=== PATIENT | female | born 1945 | race Caucasian/White ===

== ENCOUNTER → 2016-09-28 | Outpatient (CLI) | payer OTHER, MEDICARE ==
[~2016-09-28] MED LIST: AMOX875T PO; ASCA500 PO; ASPI81TA28 PO; ATOR10TA88 PO; CALC500C70 PO; CALC600T9 PO; CHOL100010 PO; CHOL20005 PO; CYAN10004 PO; CYAN10005 PO; GEMF600T3 PO; LABE200T24 PO; LACT1TAB4 PO; LEVO112T4 PO; LEVO75TA5 PO; LEVO88TA3 PO; LISI20TA3 PO; LISI40TA PO; LXP/20 PO; METO25TA3 PO; MIRT1TAB27 PO; MISCCAP80 PO; NRN/300 PO; OMEP20CA9 PO; TRC48 PO; VNCS250 PO
--- NOTE | 2016-09-28 15:30 | MAMMOGRAPHY REPORT ---
BILATERAL DIGITAL SCREENING MAMMOGRAM WITH CAD: 09/28/2016 CLINICAL HISTORY: Routine screening examination. TECHNIQUE: Bilateral CC, MLO and repeat left MLO view for motion were obtained. Current study was a lso evaluated with a Computer Aided Detection (CAD) system. COMPARISON: Comparison is made to exams dated: 09/28/2015 mammogram, 05/28/2012 mammogram, 05/27/2011 [facility], and 10/03/2007. BREAST COMPOSITION: There are scattered areas of fibroglandular density in both breasts. FINDINGS: There are stable asymmetries in the superior aspect of the breasts, and benign coarse calc ifications in the right breast. No suspicious mass, architectural distortion or cluster of microcal cifications is seen. IMPRESSION: ACR BI-RADS CATEGORY 1: NEGATIVE There is no mammographic evidence of malignancy. A 1 year screening mammogram is recommended. The p atient will receive written notification of the results. Approximately 10% of breast cancers are not detected with mammography. A negative mammographic repor t should not delay biopsy if a clinically suggestive mass is present. Latoya Mcallister M.D. ay/:09/28/2016 14:59:10 Mental Health Consultant: Rosalie MCKENNA(Sabas)(M), [facility] letter sent: Normal 1/2 BI-RADS Code: ACR BI-RADS Category 1: Negative
== END | disposition home or self-care (01) ==
LOC: C.MAMM 13:53
PROVIDERS: ATTEND Internal Medicine
DX: Z12.31 Encounter for screening mammogram for malignant neoplasm of breast (principal)

== ENCOUNTER → 2016-10-17 | Outpatient (CLI) | payer OTHER, MEDICARE ==
[2016-10-17 13:06] LABS: BASO % 0.3 %; BASO ABS # 0.03 K/uL (0-0.2); EOS % 3.1 %; IG% 0.4 %; LYMPH % 19.4 %; LYMPH ABS # 1.92 K/uL (1.2-3.4); MEAN CELL VOLUME 111.1 fL (80-100); MEAN CORPUSCULAR HEMOGLOBIN 34.8 pg (25-34); MEAN CORPUSCULAR HGB CONC 31.3 g/dl (32-36); MONO % 6.4 %; NEUT % 70.4 %; PLATELET COUNT 321 K/uL (130-400); RED BLOOD COUNT 3.42 M/uL (4.2-5.4); WHITE BLOOD COUNT 9.92 K/uL (4.8-10.8)
[2016-10-17 13:38] LABS: ALT/SGPT 37 U/L (12-78); AST/SGOT 19 U/L (15-37); BLOOD UREA NITROGEN 31 mg/dl (7-18); BUN/CREATININE RATIO 20.9 (10-20); CALCIUM 8.6 mg/dl (8.5-10.1); CARBON DIOXIDE 22 mmol/L (21-32); CHLORIDE 110 mmol/L (98-107); GLUCOSE 74 mg/dl (70-99); POTASSIUM 4.7 mmol/L (3.5-5.1); SODIUM 142 mmol/L (136-145)
[2016-10-17 13:42] LABS: COMPLETE YES
[2016-10-17 13:50] LABS: ALB/GLOB RATIO 1.2 (0.9-2); ALKALINE PHOSPHATASE 105 U/L (45-117); CHOLESTEROL 249 mg/dl (0-200); CHOLESTEROL/HDL RATIO 5.1; HDL CHOLESTEROL 49 mg/dl; TRIGLYCERIDES 417 mg/dl (0-150)
== END | disposition home or self-care (01) ==
LOC: C.LAB1850 11:30
PROVIDERS: ATTEND Internal Medicine
DX: E78.5 Hyperlipidemia, unspecified (principal); E03.9 Hypothyroidism, unspecified; E55.9 Vitamin D deficiency, unspecified; E53.8 Deficiency of other specified B group vitamins; D75.89 Other specified diseases of blood and blood-forming organs

== ENCOUNTER → 2016-11-23 | Outpatient (CLI) | payer OTHER, MEDICARE ==
[~2016-11-23] MED LIST changes: +ATOR10TA82 PO; -ATOR10TA88 PO
[2016-11-23 15:39] LABS: BASO % 0.6 %; BASO ABS # 0.05 K/uL (0-0.2); EOS % 4.1 %; HEMATOCRIT 38.9 % (37-47); IG% 0.2 %; LYMPH % 28.6 %; LYMPH ABS # 2.35 K/uL (1.2-3.4); MEAN CELL VOLUME 112.1 fL (80-100); MEAN CORPUSCULAR HEMOGLOBIN 36.3 pg (25-34); MEAN CORPUSCULAR HGB CONC 32.4 g/dl (32-36); MEAN PLATELET VOLUME 9.1 fL (7.4-10.4); MONO % 5.3 %; NEUT % 61.2 %; PLATELET COUNT 362 K/uL (130-400); RED BLOOD COUNT 3.47 M/uL (4.2-5.4); WHITE BLOOD COUNT 8.23 K/uL (4.8-10.8)
[2016-11-23 16:08] LABS: BLOOD UREA NITROGEN 32 mg/dl (7-18); BUN/CREATININE RATIO 20.2 (10-20); CARBON DIOXIDE 25 mmol/L (21-32); CHLORIDE 109 mmol/L (98-107); GLUCOSE 91 mg/dl (70-99); POTASSIUM 4.7 mmol/L (3.5-5.1); SODIUM 141 mmol/L (136-145)
[2016-11-23 16:20] LABS: TOTAL IRON BINDING CAPACITY 418 mcg/dl (250-450)
[2016-11-23 16:22] LABS: ANISOCYTOSIS PRESENT; COMPLETE YES
== END | disposition home or self-care (01) ==
LOC: C.LAB1850 14:36
PROVIDERS: ATTEND Internal Medicine
DX: E03.9 Hypothyroidism, unspecified (principal); D50.9 Iron deficiency anemia, unspecified

== ENCOUNTER 2016-12-25 15:34 | Emergency (ER) | payer OTHER, MEDICARE ==
[~2016-12-25] VITALS: Ht 170.2 cm; Wt 73.0 kg
[~2016-12-25 15:34] MED LIST changes: -AMOX875T PO; -ASCA500 PO; -CALC500C70 PO; -CHOL100010 PO; -CYAN10005 PO; -LEVO75TA5 PO; -LEVO88TA3 PO; -LISI20TA3 PO; -MISCCAP80 PO; -TRC48 PO
[2016-12-25 15:52] VITALS: TEMP 36.6; Ht 170.2 cm; Wt 73.0 kg
[2016-12-25] MEDS ORDERED: LEVO88TA3 PO (15:54)
[2016-12-25] MEDS ORDERED: TRC48 PO (15:54)
[2016-12-25] MEDS ORDERED: SODIUM CHLORIDE 0.9% 1000ML 1,000 ML IV STA (15:55)
[2016-12-25 16:38] LABS: HEMATOCRIT 38.7 % (37-47); MEAN CELL VOLUME 113.2 fL (80-100); MEAN CORPUSCULAR HEMOGLOBIN 36.3 pg (25-34); MEAN PLATELET VOLUME 8.8 fL (7.4-10.4); PLATELET COUNT 515 K/uL (130-400); RED BLOOD COUNT 3.42 M/uL (4.2-5.4); WHITE BLOOD COUNT 10.36 K/uL (4.8-10.8)
[2016-12-25 16:54] LABS: BUN/CREATININE RATIO 28.2 (10-20); CREATININE 1.9 mg/dl (0.60-1.20); POTASSIUM 5.1 mmol/L (3.5-5.1)
[2016-12-25 17:02] LABS: ANISOCYTOSIS PRESENT; BASO % 0.2 %; BASO ABS # 0.02 K/uL (0-0.2); COMPLETE YES; EOS % 1.4 %; IG% 0.5 %; LYMPH % 11.7 %; LYMPH ABS # 1.21 K/uL (1.2-3.4); NEUT % 81.2 %
[2016-12-25] MEDS ORDERED: ACETAMINOPHEN 500 MG TAB PO STA (17:13)
--- NOTE | 2016-12-25 17:20 | DIAGNOSTIC IMAGING REPORT ---
HEAD CT NONCONTRAST CT DOSE: 537.48 mGy.cm HISTORY: EVALUATE ALTERED MENTAL STATUS/WEAKNESS TECHNIQUE: Multiaxial CT images of the head were performed without the use of intravenous contrast. Automated exposure control was utilized for this study. Comparison: Head CT 05/11/2015. Findings: There is again noted a right cochlear implant. This results in metallic artifact. Fluid levels with near complete opacification of the left ethmoid air cells, left frontal sinus, and left maxillary sinus. The left mastoid air cells are clear. The calvarium and skull base are intact. The ventricles and sulci are within normal limits. There is no mass, hematoma, midline shift, or acute infarct. Impression: 1. Acute left paranasal sinusitis. 2. Metallic artifact from the right cochlear implant is again noted. This results in suboptimal evaluation. However, no definite acute intracranial abnormality. Electronically signed by: Armando Arcos M.D. 12/25/2016 5:19 PM Dictated Date/Time: 12/25/2016 5:15 PM
[2016-12-25 17:56] LABS: MANUAL MICROSCOPIC REQUIRED? NO; REVIEW REQ? NO; URINE APPEARANCE CLEAR (CLEAR); URINE BILIRUBIN NEG (NEG); URINE COLOR YELLOW; URINE EPITHELIAL CELL AUTO 20-30 /lpf (0-5); URINE NITRITE NEG (NEG); URINE PH 5.5 (4.5-7.5); URINE SPECIFIC GRAVITY 1.018 (1.000-1.030); UROBILINOGEN NEG (NEG); ZZUR CULT IF INDIC CLEAN CATCH NO
[2016-12-25] MEDS ORDERED: AMOX875T PO (18:19)
--- NOTE | 2016-12-25 18:20 | EMERGENCY ROOM VISIT NOTE ---
History Report prepared by Tamar: Sherron Lovelace Under the Supervision of: Dr. Sonny Mercer D.O. First contact with patient: 15:51 Chief Complaint: FALL Stated Complaint: FALL, WEAKNESS History of Present Illness The patient is a 71 year old female who presents to the Emergency Room with complaints of an episode of a fall occurring this morning. She reports that she uses a walker and had gotten up to use the restroom. She states that she slid off the toilet this morning onto the floor. The patient reports that she couldn' t get up so rolled out the living room. She states that she laid on the floor for about five hours till someone found her. She reports that she does have a headache. The patient notes that she has neuropathy and notes that she hasn't eaten anything today. Source of History: patient Onset: this morning Position: other (global) Quality: other (global) Timing: other (episode) Associated Symptoms: + headache Review of Systems See HPI for pertinent positives & negatives. A total of 10 systems reviewed and were otherwise negative. Past Medical & Surgical Medical Problems: (1) Altered mental status (2) Arthritis (3) Atrial flutter (4) Bimalleolar fracture of right ankle (5) Clostridium difficile colitis (6) Confusion (7) Fracture dislocation of right ankle joint (8) Hypertension (9) Metabolic acidosis (10) Sepsis associated hypotension (11) Sinusitis (12) Trimalleolar fracture of ankle, closed Family History Heart disease Hypertension Social History Smoking Status: Never Smoker Alcohol Use: occasionally Drug Use: none Marital Status: Housing Status: lives alone Occupation Status: retired Current/Historical Medications Scheduled Amoxicillin & Pot Clavulanate (Augmentin 875-125 mg), 1 TAB PO BID Aspirin (Aspirin Ec), 81 MG PO DAILY Atorvastatin (Lipitor), 10 MG PO HS Escitalopram Oxalate (Escitalopram Oxalate), 20 MG PO DAILY Fenofibrate (Fenofibrate), 48 MG PO DAILY Gabapentin (Neurontin), 300 MG PO TID Labetalol Hcl (Labetalol Hcl), 200 MG PO BID Levothyroxine Sodium (Levothyroxine Sodium), 1 TAB PO DAILY Lisinopril (Zestril), 40 MG PO DAILY Mirtazapine (Mirtazapine), 7.5 MG PO HS Omeprazole (Prilosec), 20 MG PO DAILY Allergies Coded Allergies: Sulfa Antibiotics (Verified Allergy, Severe, STOMACH SWELLS; STOMACH BLOCKAGE? PER PATIENT, 09/02/15) Physical Exam Vital Signs Date Time Temp Pulse Resp B/P (MAP) Pulse Ox O2 Delivery O2 Flow Rate FiO2 12/25/16 17:12 109 18 114/79 99 Room Air 12/25/16 15:52 36.6 113 20 108/67 97 Room Air Physical Exam CONSTITUTIONAL/VITAL SIGNS: Reviewed / noted above. GENERAL: Non-toxic in appearance. INTEGUMENTARY: Warm, dry, and [place]. HEAD: Normocephalic. EYES: without scleral icterus or trauma. ENT/OROPHARYNX: clear and moist. LYMPHADENOPATHY/NECK: Is supple without lymphadenopathy or meningismus. RESPIRATORY: Lungs clear and equal. CARDIOVASCULAR: Regular rate and rhythm. GI/ABDOMEN: Soft and nontender. No organomegaly or pulsatile mass. No rebound or guarding. Normal bowel sounds. EXTREMITIES: Warm and well perfused. BACK: No CVA tenderness. NEUROLOGICAL: Intact without focal deficits. PSYCHIATRIC: normal affect. MUSCULOSKELETAL: Normally developed with good muscle tone. Medical Decision & Procedures ER Provider Diagnostic Interpretation: Radiology results as stated below per my review and radiologist interpretation: HEAD CT NONCONTRAST CT DOSE: 537.48 mGy.cm HISTORY: EVALUATE ALTERED MENTAL STATUS/WEAKNESS TECHNIQUE: Multiaxial CT images of the head were performed without the use of intravenous contrast. Automated exposure control was utilized for this study. Comparison: Head CT 05/11/2015. Findings: There is again noted a right cochlear implant. This results in metallic artifact. Fluid levels with near complete opacification of the left ethmoid air cells, left frontal sinus, and left maxillary sinus. The left mastoid air cells are clear. The calvarium and skull base are intact. The ventricles and sulci are within normal limits. There is no mass, hematoma, midline shift, or acute infarct. Impression: 1. Acute left paranasal sinusitis. 2. Metallic artifact from the right cochlear implant is again noted. This results in suboptimal evaluation. However, no definite acute intracranial abnormality. Electronically signed by: Armando Arcos M.D. 12/25/2016 5:19 PM Dictated Date/Time: 12/25/2016 5:15 PM Laboratory Results 12/25/16 16:25 Red Blood Count 3.42, Mean Corpuscular Volume 113.2, Mean Corpuscular Hemoglobin 36.3, Mean Corpuscular Hemoglobin Concent 32.0, Mean Platelet Volume 8.8, Neutrophils (%) (Auto) 81.2, Lymphocytes (%) (Auto) 11.7, Monocytes (%) ( Auto) 5.0, Eosinophils (%) (Auto) 1.4, Basophils (%) (Auto) 0.2, Neutrophils # ( Auto) 8.42, Lymphocytes # (Auto) 1.21, Monocytes # (Auto) 0.52, Eosinophils # ( Auto) 0.14, Basophils # (Auto) 0.02 12/25/16 16:25 Test 12/25/16 16:25 12/25/16 17:30 White Blood Count 10.36 K/uL (4.8-10.8) Red Blood Count 3.42 M/uL (4.2-5.4) Hemoglobin 12.4 g/dL (12.0-16.0) Hematocrit 38.7 % (37-47) Mean Corpuscular Volume 113.2 fL (80-100) Mean Corpuscular Hemoglobin 36.3 pg (25-34) Mean Corpuscular Hemoglobin Concent 32.0 g/dl (32-36) Platelet Count 515 K/uL (130-400) Mean Platelet Volume 8.8 fL (7.4-10.4) Neutrophils (%) (Auto) 81.2 % Lymphocytes (%) (Auto) 11.7 % Monocytes (%) (Auto) 5.0 % Eosinophils (%) (Auto) 1.4 % Basophils (%) (Auto) 0.2 % Neutrophils # (Auto) 8.42 K/uL (1.4-6.5) Lymphocytes # (Auto) 1.21 K/uL (1.2-3.4) Monocytes # (Auto) 0.52 K/uL (0.11-0.59) Eosinophils # (Auto) 0.14 K/uL (0-0.5) Basophils # (Auto) 0.02 K/uL (0-0.2) RDW Standard Deviation 59.2 fL (36.4-46.3) RDW Coefficient of Variation 14.4 % (11.5-14.5) Immature Granulocyte % (Auto) 0.5 % Immature Granulocyte # (Auto) 0.05 K/uL (0.00-0.02) Nucleated RBC Absolute Count (auto) 0.02 K/uL (0-0) Nucleated Red Blood Cells % 0.2 % Anisocytosis PRESENT Macrocytosis PRESENT Anion Gap 15.0 mmol/L (3-11) Est Creatinine Clear Calc Drug Dose 25.7 ml/min Estimated GFR () 29.8 Estimated GFR (Non- 25.7 BUN/Creatinine Ratio 28.2 (10-20) Calcium Level 9.0 mg/dl (8.5-10.1) Urine Color YELLOW Urine Appearance CLEAR (CLEAR) Urine pH 5.5 (4.5-7.5) Urine Specific Bowen 1.018 (1.000-1.030) Urine Protein NEG (NEG) Urine Glucose (UA) NEG (NEG) Urine Ketones NEG (NEG) Urine Occult Blood NEG (NEG) Urine Nitrite NEG (NEG) Urine Bilirubin NEG (NEG) Urine Urobilinogen NEG (NEG) Urine Leukocyte Esterase NEG (NEG) Urine WBC (Auto) 1-5 /hpf (0-5) Urine RBC (Auto) 0-4 /hpf (0-4) Urine Hyaline Casts (Auto) 1-5 /lpf (0-5) Urine Epithelial Cells (Auto) 20-30 /lpf (0-5) Urine Bacteria (Auto) NEG (NEG) Laboratory results as stated above per my review. Medications Administered Medications (Trade) Dose Ordered Sig/Hillary Route Start Time Stop Time Status Last Admin Dose Admin Sodium Chloride 1,000 ml @ 999 mls/hr Q1H1M STAT IV 12/25/16 15:55 12/25/16 16:55 DC 12/25/16 16:40 999 MLS/HR Acetaminophen (Tylenol Tab) 1,000 mg NOW STAT PO 12/25/16 17:13 12/25/16 17:14 DC 12/25/16 17:19 1,000 MG ED Course 1551: Previous medical records were reviewed. The patient was evaluated in room B11B. A complete history and physical examination was performed. 1555: Ordered NSS 1000 ml @ 999 mls/hr IV. 1713: Ordered Tylenol Tab 1000 mg PO. 1810: On reevaluation, the patient is resting comfortably. I discussed the results and findings with the patient. She verbalized agreement of the treatment plan. The patient was discharged home. Medical Decision Medication Reconciliation: I attest that I have personally reviewed the patient' s current medication list. Blood pressure Screening: Patient was found to have normal blood pressure on screening and does not require follow-up. Differential diagnosis: Etiologies such as fracture, dislocation, intra-abdominal, pneumothorax, intrathoracic , intracranial, neurologic, as well as other traumatic pathologies were entertained. Differential diagnosis: Etiologies such as metabolic, infection, hypo/hyperglycemia, electrolyte abnormalities, cardiac sources, intracerebral event, toxicologic, neurologic, as well as others were entertained. This is a 71-year-old female who presents to the ED after a fall. The patient states that she fell this morning and could not get up. She was on the ground for about 45 hours. She states that she crawled around but could not get herself up. She slid off the toilet. She was brought here by EMS. She complains of a headache. She denies striking her head. She is concerned about a possible sinus infection. Her vital signs are normal. Her physical exam reveals no ischemic abnormalities other than some dried mucous membranes. CT scan of the brain reveals a left paranasal sinusitis. CBC is normal. The BUN is 54 and creatinine is 1.9 (1.6 baseline). The patient tolerated by mouth fluids as well as a liter of normal saline IV. Urine did not show infection or ketones. The patient was given Tylenol by mouth for her headache. She was placed on Augmentin for sinus infection. She was encouraged to drink plenty of fluids. She was told the results and felt to be stable for discharge and outpatient follow-up. She does use a walker and was told to use this if she is feeling unsteady. Impression Primary Impression: Fall Additional Impressions: Sinusitis Dehydration Scribe Attestation The scribe's documentation has been prepared under my direction and personally reviewed by me in its entirety. I confirm that the note above accurately reflects all work, treatment, procedures, and medical decision making performed by me. Departure Information Dispostion Home / Self-Care Prescriptions Amoxicillin & Pot Clavulanate (Augmentin 875-125 mg) 1 Tab Tab 1 TAB PO BID, #14 TAB Prov: Sonny Mercer D.O. 12/25/16 Referrals ADAM Mims., MD (PCP) Patient Instructions ED Sinusitis Abx Tx, [facility] Additional Instructions Augmentin as prescribed. Take Tylenol as needed for headache. Drink plenty of fluids. Follow-up with your doctor for further care and evaluation in 1-5 days. Return to the emergency department for worsening or new symptoms or any concerns. You have been examined and treated today on an emergency basis only. This is not a substitute for, or an effort to provide, complete comprehensive medical care. It is impossible to recognize and treat all injuries or illnesses in a single emergency department visit. It is therefore important that you follow up closely with your doctor. Call as soon as possible for an appointment. Problem Qualifiers
[2016-12-25] MEDS ORDERED: AMOXICIL/CLAVU 875MG HOME PACK PO ONE (19:30)
[2016-12-25 19:47] VITALS: BP 143/96; PULSE 110; O2SAT 96
[2016-12-25] MEDS ORDERED: AMOXICILLIN/CLAVULANATE TAB 875 MG TAB PO ONE (21:00)
[2017-04-13] MEDS ORDERED: CYAN10005 PO (10:19)
[2017-04-13] MEDS ORDERED: GEMF600T3 PO (10:19)
[2017-04-13] MEDS ORDERED: LISI20TA3 PO (10:19)
[2017-04-13] MEDS ORDERED: LEVO75TA5 PO (10:19)
[2017-04-13] MEDS ORDERED: MISCCAP80 PO (10:19)
[2017-04-13] MEDS ORDERED: ASCA500 PO (10:19)
[2017-04-13] MEDS ORDERED: CHOL100010 PO (10:19)
[2017-04-13] MEDS ORDERED: CALC500C70 PO (10:19)
== END 2016-12-25 19:49 | disposition home or self-care (01) ==
LOC: EDBD 15:34 → C.EDB 15:35
DX: J32.9 Chronic sinusitis, unspecified (principal); W19.XXXA Unspecified fall, initial encounter; E86.0 Dehydration; R41.82 Altered mental status, unspecified; M19.90 Unspecified osteoarthritis, unspecified site; I48.92 Unspecified atrial flutter; A04.7 Enterocolitis due to Clostridium difficile; I10 Essential (primary) hypertension; E87.2 Acidosis; Z82.49 Family history of ischemic heart disease and other diseases of the circulatory system; Z79.82 Long term (current) use of aspirin

== ENCOUNTER → 2017-01-30 | Outpatient (CLI) | payer OTHER, MEDICARE ==
[~2017-01-30] MED LIST changes: +ASCA500 PO; -ATOR10TA82 PO; +ATOR10TA88 PO; +CALC500C70 PO; -CALC600T9 PO; +CHOL100010 PO; -CHOL20005 PO; -CYAN10004 PO; +CYAN10005 PO; -LACT1TAB4 PO; -LEVO112T4 PO; +LEVO75TA5 PO; +LEVO88TA3 PO; +LISI20TA3 PO; -METO25TA3 PO; +MISCCAP80 PO; +TRC48 PO; -VNCS250 PO
[2017-01-30 10:46] LABS: BASO % 0.8 %; BASO ABS # 0.07 K/uL (0-0.2); EOS % 5.8 %; HEMATOCRIT 33.2 % (37-47); IG% 0.2 %; LYMPH % 19.3 %; LYMPH ABS # 1.59 K/uL (1.2-3.4); MEAN CELL VOLUME 115.3 fL (80-100); MEAN CORPUSCULAR HEMOGLOBIN 35.8 pg (25-34); MEAN PLATELET VOLUME 8.7 fL (7.4-10.4); MONO % 6.9 %; PLATELET COUNT 380 K/uL (130-400); RED BLOOD COUNT 2.88 M/uL (4.2-5.4); WHITE BLOOD COUNT 8.24 K/uL (4.8-10.8)
[2017-01-30 11:19] LABS: COMPLETE YES
[2017-01-30 11:24] LABS: ALT/SGPT 44 U/L (12-78); AST/SGOT 28 U/L (15-37); BLOOD UREA NITROGEN 23 mg/dl (7-18); BUN/CREATININE RATIO 23.7 (10-20); CALCIUM 9.1 mg/dl (8.5-10.1); CARBON DIOXIDE 24 mmol/L (21-32); CHLORIDE 112 mmol/L (98-107); CREATININE 0.98 mg/dl (0.60-1.20); GLUCOSE 93 mg/dl (70-99); SODIUM 145 mmol/L (136-145)
[2017-01-30 11:27] LABS: ALB/GLOB RATIO 0.8 (0.9-2); ALKALINE PHOSPHATASE 168 U/L (45-117)
== END | disposition home or self-care (01) ==
LOC: C.LAB1850 09:52
PROVIDERS: ATTEND Internal Medicine
DX: D47.3 Essential (hemorrhagic) thrombocythemia (principal); E86.0 Dehydration

== ENCOUNTER → 2017-02-13 | Outpatient (CLI) | payer OTHER, MEDICARE | END | disposition home or self-care (01) | LOC: C.LAB1850 12:06 | PROVIDERS: ATTEND Internal Medicine | DX: D64.9 Anemia, unspecified (principal) ==

== ENCOUNTER → 2017-04-17 | Outpatient (CLI) | payer OTHER, MEDICARE ==
[~2017-04-17] MED LIST changes: -ATOR10TA88 PO; -LEVO88TA3 PO; -LISI40TA PO
[2017-04-17 12:51] LABS: BASO % 0.4 %; BASO ABS # 0.03 K/uL (0-0.2); EOS % 3.7 %; HEMATOCRIT 37.3 % (37-47); IG% 0.1 %; LYMPH % 24.3 %; LYMPH ABS # 1.64 K/uL (1.2-3.4); MEAN CORPUSCULAR HEMOGLOBIN 34.8 pg (25-34); MEAN CORPUSCULAR HGB CONC 31.6 g/dl (32-36); MEAN PLATELET VOLUME 9.1 fL (7.4-10.4); MONO % 7.8 %; NEUT % 63.7 %; PLATELET COUNT 315 K/uL (130-400); RED BLOOD COUNT 3.39 M/uL (4.2-5.4); WHITE BLOOD COUNT 6.76 K/uL (4.8-10.8)
[2017-04-17 13:17] LABS: COMPLETE YES
[2017-04-17 13:22] LABS: ALKALINE PHOSPHATASE 93 U/L (45-117); ALT/SGPT 27 U/L (12-78); AST/SGOT 21 U/L (15-37); BLOOD UREA NITROGEN 27 mg/dl (7-18); BUN/CREATININE RATIO 20.9 (10-20); CALCIUM 8.9 mg/dl (8.5-10.1); CARBON DIOXIDE 23 mmol/L (21-32); CHLORIDE 108 mmol/L (98-107); CHOLESTEROL 200 mg/dl (0-200); GLUCOSE 61 mg/dl (70-99); POTASSIUM 4.4 mmol/L (3.5-5.1); SODIUM 140 mmol/L (136-145); TRIGLYCERIDES 267 mg/dl (0-150); VERY LOW DENSITY LIPOPROT CALC 53 mg/dl
[2017-04-17 13:31] LABS: ALB/GLOB RATIO 1.2 (0.9-2); CHOLESTEROL/HDL RATIO 3.9; HDL CHOLESTEROL 51 mg/dl; LDL CHOLESTEROL CALCULATED 96 mg/dl; TOTAL IRON BINDING CAPACITY 350 mcg/dl (250-450)
== END | disposition home or self-care (01) ==
LOC: C.LAB1850 11:06
PROVIDERS: ATTEND Internal Medicine
DX: E03.9 Hypothyroidism, unspecified (principal); E55.9 Vitamin D deficiency, unspecified; E78.5 Hyperlipidemia, unspecified; D50.9 Iron deficiency anemia, unspecified; E53.8 Deficiency of other specified B group vitamins

== ENCOUNTER → 2017-06-26 | Day surgery (SDC) | payer OTHER, MEDICARE ==
[2017-06-14 13:14] VITALS: Ht 170.2 cm; Wt 72.7 kg
[~2017-06-26] VITALS: Ht 170.2 cm; Wt 72.7 kg
[~2017-06-26] MED LIST changes: +500ML BSS 0.3ML EPI 1:1000PF IRRIG ONE; +ACETAMINOPHEN 325 MG TAB PO PRN; +AMVISC PLUS 0.8ML SYRINGE INT OCU ONE; +ATROPINE SULFATE 0.1 MG/ML 5ML SYR IV PRN; +BRIMONIDINE TART 0.2% OP SOLN PER DROP CHARGE ONE; +BSS FLUSH ONE; +ENDOCOAT 0.85ML SYRINGE INT OCU ONE; +EpHEDrine SULFATE INJ 50 MG/ML AMP IV PRN; +EpINEphrine INJ 1MG/ML AMP 1 MG/ML AMP ONE; +LACTATED RINGER'S 1000ML 500 ML IV SCH; +LIDOCAINE 4% OP SOLN DROP CHARGE ONE; +LIDOCAINE 4% OP SOLN DROP CHARGE OPR SCH; +LIDOCAINE HCL 1% MPF 2 ML VIAL ONE; +MIDAZOLAM HCL 1 MG/ML 2ML VIAL ONE; +MOXIFLOXACIN OPH SOLN PER DROP CHARGE ONE; +POVIDONE-IODINE OP SOLN 30 ML BTL ONE; +PROPARACAINE 0.5% OP SOLN PER DROP CHARGE OPR SCH; +TOBRAMYCIN/DEXAMETHASONE OPH OINT PER APPLN CHARGE ONE; +VISCOAT 0.5ML SYRINGE INT OCU ONE
[2017-06-26] MEDS: PHENYLEPHRINE HCL 2.5% OP SOLN PER DROP CHARGE OPR SCH ×2 (08:20→08:25)
[2017-06-26] MEDS: TROPICAMIDE 1% OP SOLN PER DROP CHARGE OPR SCH ×2 (08:21→08:26)
[2017-06-26] MEDS: CYCLOPENTOLATE HCL 1% OP SOLN PER DROP CHARGE OPR SCH ×2 (08:22→08:27)
[2017-06-26] MEDS: KETOROLAC 0.5% OP SOLN PER DROP CHARGE OPR SCH ×2 (08:23→08:28)
[2017-06-26] MEDS: MOXIFLOXACIN OPH SOLN PER DROP CHARGE OPR SCH ×2 (08:24→08:34)
--- NOTE | 2017-06-26 08:41 | History & Physical Bridge - [place] ---
H&P Re-Evaluation Bridge Note: I have examined the patient, reviewed the History & Physical and in the interval since the performance of the History & Physical I have noted the following changes of clinical significance: No changes noted
--- NOTE | 2017-06-26 09:36 | Discharge Instructions-SurgCtr ---
Discharge Instructions Date of Service Jun 26, 2017. Visit Reason for Visit: Cataract Right Eye Discharge Discharge Diagnosis / Problem: cataract right eye Discharge Goals Goal(s): Improve function Activity Recommendations Activity Limitations: per Instructions/Follow-up section Lifting Limitations: no more than 5 pounds Anesthesia . Post Anesthesia Instructions: If you have had General Anesthesia or IV Sedation: * Do not drive today. * Resume driving when surgeon permits. * Do not make important decisions or sign legal documents today. * Call surgeon for: 1. Temperature elevations greater than 101 degrees F. 2. Uncontrollable pain. 3. Excessive bleeding. 4. Persistent nausea and vomiting. 5. Medication intolerance (nausea, vomiting or rash). * For nausea and vomiting use only clear liquids such as: tea, soda, bouillon until nausea subsides, then gradually increase diet as tolerated. * If you have any concerns or questions, call your surgeon's office. If physician is unavailable and it is an emergency, call 911 or go to the nearest emergency room. . Instructions / Follow-Up Instructions / Follow-Up ACTIVITY RECOMMENDATIONS: * Light activities * You may walk outside, read, watch television. * Mild irritation and blurred vision are common for the first few days, redness around the white part of the eye is common. MEDICATIONS: Resume previous medications unless instructed otherwise by your surgeon. Eye drops (today and tomorrow): Polytrim - one drop in operative eye every 2 hours while awake Prednisolone 1% - one drop in operative eye every 2 hours while awake Prolensa - one drop operative eye 1 times daily SPECIAL CARE INSTRUCTIONS: * If any problems or concerns, please call Dr. Medrano's office at . * Keep plastic shield taped over eye to sleep at night. * Keep plastic shield taped over eye except to administer eye drops. * Keep plastic shield on until office visit the following day. FOLLOW UP VISIT: Follow-up with Dr. Medrano in the [place] office as scheduled. If not already scheduled, please call the office at . Diet Recommendations Home Diet: resume previous diet Procedures Procedures Performed: Right Eye Cataract Phacoemulsification With Intraocular Lens Implant Pending Studies Studies pending at discharge: no Medical Emergencies . Who to Call and When: Medical Emergencies: If at any time you feel your situation is an emergency, please call 911 immediately. . Non-Emergent Contact Non-Emergency issues call your: Parachute/Combatant Diver Officer . . "Provider Documentation" section prepared by Camacho Medrano. .
--- NOTE | 2017-06-26 09:37 | [facility] Operative Report ---
Operative Report Operative Date Jun 26, 2017. Pre-Operative Diagnosis Right Eye Cataract Post-Operative Diagnosis Same Procedure(s) Performed Right Eye Cataract Phacoemulsification With Intraocular Lens Implant Surgeon Dr. Medrano Director Of Recreation Therapy Surgeon(s) None Estimated Blood Loss None Findings cataract right eye Fluids (cc crystalloids) see anesthesia record Specimens None Drains none Anesthesia local with sedation Complication(s) None Disposition Recovery Room / PACU Implants [id number] 21.5 Indications decreased vision right eye Description of Procedure After informed consent was obtained in the holding area the patient was wheeled back to the operating room where cardiac monitoring leads and oxygen by nasal cannula was administered by Anesthesia. Gentle IV sedation was given, and the patient's right eye was prepped and draped in usual sterile fashion. A wire lid speculum was placed into the right eye and the operating microscope was swung into position. Using 0.12 forceps and a Supersharp blade a paracentesis port was made 2 o'clock hours away from the 9 o'clock position of the patient's right eye. 1% non-preserved Lidocaine was then injected into the anterior chamber for anesthesia. A 2.0 mm keratotome blade was then used to make a shelved clear corneal incision at the 9 o'clock position of the right eye. Amvisc was injected into the anterior chamber and a cystotome and Utrata forceps were used to perform a curvilinear capsulorrhexis. BSS on a hydrodissection cannula was used to hydrodissect the lens nucleus away from the capsular bag. The phacoemulsification handpiece was then used in a stop and chop fashion to remove the lens nucleus. The irrigation and aspiration handpiece was then used to remove the residual cortical material. Amvisc was injected into the capsular bag and anterior chamber and a Bausch [employer] Lomb MX60 21.5 Diopter intraocular lens was injected into the capsular bag. Irrigation and aspiration handpiece was used to remove the residual viscoelastic material. The wounds were hydrated and noted to be watertight. The wire lid speculum was removed from the eye. Vigamox, Brimonidine, and TobraDex ointment were placed on the eye and it was shielded. It should be noted that EndoCoat was used extensively during the case to protect the cornea endothelium. DISPOSITION: The patient tolerated the procedure well and was wheeled to the post anesthesia care unit in stable condition. I attest to the content of the Intraoperative Record and any orders documented therein. Any exceptions are noted below. I attest to the content of the Intraoperative Record and any orders documented therein. Any exceptions are noted below.
[2017-06-26 09:38] VITALS: TEMP 36.7
--- NOTE | 2017-06-26 10:05 | Anesthesia Progress Nt - [facility] ---
Anesthesia Post Op Note Date & Time Jun 26, 2017 at 10:04 Vital Signs Pain Intensity: 0 Vital Signs Past 12 Hours Date Time Temp Pulse Resp B/P (MAP) Pulse Ox O2 Delivery O2 Flow Rate FiO2 06/26/17 09:38 36.7 94 16 168/85 (112) 97 Room Air 06/26/17 08:12 37.1 90 18 162/97 (118) 95 Room Air Notes Mental Status: alert / awake / arousable, participated in evaluation Pt Amnestic to Procedure: Yes Nausea / Vomiting: adequately controlled Pain: adequately controlled Airway Patency, RR, SpO2: stable & adequate BP & HR: stable & adequate Hydration State: stable & adequate Anesthetic Complications: no major complications apparent
[2017-06-26 10:08] VITALS: BP 158/88; PULSE 86; O2SAT 97
== END | disposition home or self-care (01) ==
LOC: X.SURG 07:57
PROVIDERS: ATTEND Ophthalmology
DX: H25.11 Age-related nuclear cataract, right eye (principal); I10 Essential (primary) hypertension; E03.9 Hypothyroidism, unspecified; F32.9 Major depressive disorder, single episode, unspecified; F41.9 Anxiety disorder, unspecified; G62.9 Polyneuropathy, unspecified; F43.10 Post-traumatic stress disorder, unspecified; Z86.73 Personal history of transient ischemic attack (TIA), and cerebral infarction without residual deficits; Z79.82 Long term (current) use of aspirin; Z79.899 Other long term (current) drug therapy

== ENCOUNTER → 2017-07-10 | Day surgery (SDC) | payer OTHER, MEDICARE ==
[2017-07-05 13:21] VITALS: Ht 170.2 cm; Wt 72.7 kg
[~2017-07-10] VITALS: Ht 170.2 cm; Wt 72.7 kg
[~2017-07-10] MED LIST changes: -EpHEDrine SULFATE INJ 50 MG/ML AMP IV PRN; +LIDOCAINE 4% OP SOLN DROP CHARGE OPL SCH; -LIDOCAINE 4% OP SOLN DROP CHARGE OPR SCH; +PROPARACAINE 0.5% OP SOLN PER DROP CHARGE OPL SCH; -PROPARACAINE 0.5% OP SOLN PER DROP CHARGE OPR SCH; -VISCOAT 0.5ML SYRINGE INT OCU ONE
[2017-07-10] MEDS: TROPICAMIDE 1% OP SOLN PER DROP CHARGE OPL SCH ×2 (07:27→07:32)
[2017-07-10] MEDS: PHENYLEPHRINE HCL 2.5% OP SOLN PER DROP CHARGE OPL SCH ×2 (07:27→07:31)
[2017-07-10] MEDS: CYCLOPENTOLATE HCL 1% OP SOLN PER DROP CHARGE OPL SCH ×2 (07:28→07:32)
[2017-07-10] MEDS: MOXIFLOXACIN OPH SOLN PER DROP CHARGE OPL SCH ×2 (07:29→07:38)
[2017-07-10] MEDS: KETOROLAC 0.5% OP SOLN PER DROP CHARGE OPL SCH ×2 (07:29→07:33)
--- NOTE | 2017-07-10 08:36 | Discharge Instructions-SurgCtr ---
Discharge Instructions Date of Service Jul 10, 2017. Visit Reason for Visit: Cataract Left Eye Discharge Discharge Diagnosis / Problem: cataract left eye Discharge Goals Goal(s): Improve function Activity Recommendations Activity Limitations: per Instructions/Follow-up section Lifting Limitations: no more than 5 pounds Anesthesia . Post Anesthesia Instructions: If you have had General Anesthesia or IV Sedation: * Do not drive today. * Resume driving when surgeon permits. * Do not make important decisions or sign legal documents today. * Call surgeon for: 1. Temperature elevations greater than 101 degrees F. 2. Uncontrollable pain. 3. Excessive bleeding. 4. Persistent nausea and vomiting. 5. Medication intolerance (nausea, vomiting or rash). * For nausea and vomiting use only clear liquids such as: tea, soda, bouillon until nausea subsides, then gradually increase diet as tolerated. * If you have any concerns or questions, call your surgeon's office. If physician is unavailable and it is an emergency, call 911 or go to the nearest emergency room. . Instructions / Follow-Up Instructions / Follow-Up ACTIVITY RECOMMENDATIONS: * Light activities * You may walk outside, read, watch television. * Mild irritation and blurred vision are common for the first few days, redness around the white part of the eye is common. MEDICATIONS: Resume previous medications unless instructed otherwise by your surgeon. Eye drops (today and tomorrow): Durezol - one drop in operative eye 4 x a day Ciprofloxacin - one drop in operative eye every 2 hours while awake SPECIAL CARE INSTRUCTIONS: * If any problems or concerns, please call Dr. Medrano's office at . * Keep plastic shield taped over eye to sleep at night. * Keep plastic shield taped over eye except to administer eye drops. * Keep plastic shield on until office visit the following day. FOLLOW UP VISIT: Follow-up with Dr. Medrano in the [place] office as scheduled. If not already scheduled, please call the office at . Diet Recommendations Home Diet: resume previous diet Procedures Procedures Performed: Left Cataract Phacoemulsification With Intraocular Lens Implant Pending Studies Studies pending at discharge: no Medical Emergencies . Who to Call and When: Medical Emergencies: If at any time you feel your situation is an emergency, please call 911 immediately. . Non-Emergent Contact Non-Emergency issues call your: Knit Goods Mender . . "Provider Documentation" section prepared by Camacho Medrano. .
[2017-07-10 08:37] VITALS: TEMP 36.2
--- NOTE | 2017-07-10 08:38 | [facility] Operative Report ---
Operative Report Operative Date Jul 10, 2017. Pre-Operative Diagnosis Cataract left eye Post-Operative Diagnosis Same Procedure(s) Performed Left Cataract Phacoemulsification With Intraocular Lens Implant Surgeon Pinion And Wheel Truer Surgeon(s) None Estimated Blood Loss Zero Findings cataract left eye Fluids (cc crystalloids) see anesthesia record Specimens None Drains none Anesthesia local with sedation Complication(s) None Disposition Recovery Room / PACU Implants [id number] 20.5 Indications decreased vision left eye Description of Procedure After informed consent was obtained in the holding area the patient was wheeled back to the operating room where cardiac monitoring leads and oxygen by nasal cannula was administered by Anesthesia. Gentle IV sedation was given, and the patient's left eye was prepped and draped in usual sterile fashion. A wire lid speculum was placed into the left eye and the operating microscope was swung into position. Using 0.12 forceps and a Supersharp blade a paracentesis port was made 2 o'clock hours away from the 3 o'clock position of the patient's left eye. 1% non-preserved Lidocaine was then injected into the anterior chamber for anesthesia. A 2.0 mm keratotome blade was then used to make a shelved clear corneal incision at the 3 o'clock position of the left eye. Amvisc was injected into the anterior chamber and a cystotome and Utrata forceps were used to perform a curvilinear capsulorrhexis. BSS on a hydrodissection cannula was used to hydrodissect the lens nucleus away from the capsular bag. The phacoemulsification handpiece was then used in a stop and chop fashion to remove the lens nucleus. The irrigation and aspiration handpiece was then used to remove the residual cortical material. Amvisc was injected into the capsular bag and anterior chamber and a [employer]ch [employer] Lomb MX60 20.5 Diopter intraocular lens was injected into the capsular bag. Irrigation and aspiration handpiece was used to remove the residual viscoelastic material. The wounds were hydrated and noted to be watertight. The wire lid speculum was removed from the eye. Vigamox, Brimonidine, and TobraDex ointment were placed on the eye and it was shielded. It should be noted that EndoCoat was used extensively during the case to protect the cornea endothelium. DISPOSITION: The patient tolerated the procedure well and was wheeled to the post anesthesia care unit in stable condition. I attest to the content of the Intraoperative Record and any orders documented therein. Any exceptions are noted below. I attest to the content of the Intraoperative Record and any orders documented therein. Any exceptions are noted below.
[2017-07-10 09:18] VITALS: BP 141/95; PULSE 94; O2SAT 99
--- NOTE | 2017-07-10 09:35 | Anesthesia Progress Nt - [facility] ---
Anesthesia Post Op Note Date & Time Jul 10, 2017 at 09:35 Vital Signs Pain Intensity: 0 Vital Signs Past 12 Hours Date Time Temp Pulse Resp B/P (MAP) Pulse Ox O2 Delivery O2 Flow Rate FiO2 07/10/17 09:18 94 18 141/95 (110) 99 Room Air 07/10/17 08:37 36.2 84 18 165/93 (117) 97 Room Air 07/10/17 07:17 36.9 86 16 147/95 (112) 95 Room Air Notes Mental Status: alert / awake / arousable, participated in evaluation Pt Amnestic to Procedure: Yes Nausea / Vomiting: adequately controlled Pain: adequately controlled Airway Patency, RR, SpO2: stable & adequate BP & HR: stable & adequate Hydration State: stable & adequate Anesthetic Complications: no major complications apparent
== END | disposition home or self-care (01) ==
LOC: X.SURG 06:49
PROVIDERS: ATTEND Ophthalmology
DX: H25.12 Age-related nuclear cataract, left eye (principal); I10 Essential (primary) hypertension; K21.9 Gastro-esophageal reflux disease without esophagitis; Z86.73 Personal history of transient ischemic attack (TIA), and cerebral infarction without residual deficits; E03.9 Hypothyroidism, unspecified; F41.9 Anxiety disorder, unspecified; F32.9 Major depressive disorder, single episode, unspecified; Z90.89 Acquired absence of other organs

== ENCOUNTER → 2017-10-19 | Outpatient (CLI) | payer OTHER, MEDICARE ==
[~2017-10-19] MED LIST changes: -500ML BSS 0.3ML EPI 1:1000PF IRRIG ONE; -ACETAMINOPHEN 325 MG TAB PO PRN; -AMVISC PLUS 0.8ML SYRINGE INT OCU ONE; -ATROPINE SULFATE 0.1 MG/ML 5ML SYR IV PRN; -BRIMONIDINE TART 0.2% OP SOLN PER DROP CHARGE ONE; -BSS FLUSH ONE; -ENDOCOAT 0.85ML SYRINGE INT OCU ONE; -EpINEphrine INJ 1MG/ML AMP 1 MG/ML AMP ONE; -LACTATED RINGER'S 1000ML 500 ML IV SCH; -LIDOCAINE 4% OP SOLN DROP CHARGE ONE; -LIDOCAINE 4% OP SOLN DROP CHARGE OPL SCH; -LIDOCAINE HCL 1% MPF 2 ML VIAL ONE; -MIDAZOLAM HCL 1 MG/ML 2ML VIAL ONE; -MOXIFLOXACIN OPH SOLN PER DROP CHARGE ONE; -POVIDONE-IODINE OP SOLN 30 ML BTL ONE; -PROPARACAINE 0.5% OP SOLN PER DROP CHARGE OPL SCH; -TOBRAMYCIN/DEXAMETHASONE OPH OINT PER APPLN CHARGE ONE
[2017-10-19 13:20] LABS: BASO % 0.4 %; BASO ABS # 0.04 K/uL (0-0.2); EOS % 1.3 %; EOS ABS # 0.14 K/uL (0-0.5); HEMOGLOBIN 11.6 g/dL (12.0-16.0); IG# 0.03 K/uL (0.00-0.02); LYMPH % 13.9 %; LYMPH ABS # 1.48 K/uL (1.2-3.4); MEAN CELL VOLUME 108.4 fL (80-100); MEAN CORPUSCULAR HEMOGLOBIN 34.9 pg (25-34); MEAN CORPUSCULAR HGB CONC 32.2 g/dl (32-36); MEAN PLATELET VOLUME 8.8 fL (7.4-10.4); MONO % 2.7 %; MONO ABS # 0.29 K/uL (0.11-0.59); NEUT % 81.4 %; NEUT ABS # 8.63 K/uL (1.4-6.5); PLATELET COUNT 309 K/uL (130-400); RED CELL DISTRIBUTION WIDTH CV 13.7 % (11.5-14.5); WHITE BLOOD COUNT 10.61 K/uL (4.8-10.8)
[2017-10-19 14:50] LABS: ALBUMIN 4.2 gm/dl (3.4-5.0); ALKALINE PHOSPHATASE 85 U/L (45-117); ALT/SGPT 24 U/L (12-78); AST/SGOT 21 U/L (15-37); BLOOD UREA NITROGEN 30 mg/dl (7-18); CALCIUM 8.7 mg/dl (8.5-10.1); CARBON DIOXIDE 24 mmol/L (21-32); CHOLESTEROL 184 mg/dl (0-200); CREATININE 1.26 mg/dl (0.60-1.20); GLUCOSE 95 mg/dl (70-99); POTASSIUM 4.7 mmol/L (3.5-5.1); SODIUM 136 mmol/L (136-145); TOTAL PROTEIN 7.4 gm/dl (6.4-8.2)
[2017-10-19 15:01] LABS: LDL CHOLESTEROL CALCULATED 93 mg/dl
== END | disposition home or self-care (01) ==
LOC: C.LAB1850 11:33
PROVIDERS: ATTEND Internal Medicine
DX: E53.8 Deficiency of other specified B group vitamins (principal); E55.9 Vitamin D deficiency, unspecified; D50.9 Iron deficiency anemia, unspecified; E03.9 Hypothyroidism, unspecified; I10 Essential (primary) hypertension; E78.5 Hyperlipidemia, unspecified

== ENCOUNTER 2018-02-11 14:30 | Inpatient (IN) | payer OTHER, MEDICARE ==
[~2018-02-11] VITALS: Ht 167.6 cm; Wt 76.3 kg
[~2018-02-11 14:30] MED LIST changes: -LABE200T24 PO; +LABE200T5 PO
[2018-02-11] MEDS ORDERED: SODIUM CHLORIDE 0.9% 1000ML 1,000 ML IV STA ×2 (14:36→18:24)
--- NOTE | 2018-02-11 14:40 | EMERGENCY ROOM VISIT NOTE ---
History Report prepared by Tamar: Georgina Chapman Under the Supervision of: Dr. Louie Romero D.O. First contact with patient: 14:31 Stated Complaint: GEN ILLNESS History of Present Illness The patient is a 73 year old female who presents to the Emergency Room with complaints of worsening generalized illness beginning about a week ago. The patient notes diarrhea, a fever, and generalized weakness. She notes on only drinking water today. The patient lives at home by herself. The patient states she uses a walker to ambulate. The patient is concerned she has C.Diff due to her history of C.Diff 2 years ago. The patient has a history of neuropathy. Source of History: patient Onset: a week ago Position: other (generalized) Quality: other (illness) Timing: worsening Associated Symptoms: + fevers, + diarrhea, + weakness Review of Systems See HPI for pertinent positives & negatives. A total of 10 systems reviewed and were otherwise negative. Past Medical & Surgical Medical Problems: (1) Altered mental status (2) Arthritis (3) Atrial flutter (4) Bimalleolar fracture of right ankle (5) Clostridium difficile colitis (6) Confusion (7) Fracture dislocation of right ankle joint (8) Hypertension (9) Metabolic acidosis (10) Sepsis associated hypotension (11) Sinusitis (12) Trimalleolar fracture of ankle, closed Family History Heart disease Hypertension Social History Smoking Status: Former Smoker Alcohol Use: occasionally Drug Use: none Marital Status: Housing Status: lives alone Occupation Status: retired Current/Historical Medications Scheduled Ascorbic Acid (Vitamin C), 1 TAB PO QAM Aspirin (Aspirin Ec), 81 MG PO QAM Atorvastatin (Lipitor), 40 MG PO HS Calcium/Vitamin D (Os-Juan Carlos 500 Plus D), 1 TAB PO BID Cholecalciferol (Vitamin D), 1 TAB PO QPM Cyanocobalamin (Vitamin B-12), 1,000 MCG PO QAM Fenofibrate (Fenofibrate), 48 MG PO QAM Gabapentin (Neurontin), 300 MG PO TID Labetalol Hcl (Labetalol Hcl), 200 MG PO BID Levothyroxine Sodium (Synthroid), 88 MCG PO QAM Mirtazapine (Mirtazapine), 7.5 MG PO HS Omeprazole (Prilosec), 20 MG PO QAM Probiotic Product (Probiotic), 1 CAP PO QAM Vancomycin Hcl (Vancomycin), 1 CAP PO QID Allergies Coded Allergies: Sulfa Antibiotics (Verified Allergy, Severe, STOMACH SWELLS; STOMACH BLOCKAGE? PER PATIENT, 02/11/18) Physical Exam Vital Signs Date Time Temp Pulse Resp B/P (MAP) Pulse Ox O2 Delivery O2 Flow Rate FiO2 02/11/18 18:15 99 16 142/101 98 Room Air 02/11/18 17:27 102 02/11/18 17:11 101 16 120/80 98 Room Air 02/11/18 15:35 98 16 120/89 96 Room Air 02/11/18 14:37 36.9 112 16 111/87 95 Room Air Physical Exam GENERAL: Patient is awake, alert, and in no acute distress. Patient is resting comfortably and showing no signs of anxiety EYES: The conjunctivae are clear. The pupils are round and reactive. EARS, NOSE, MOUTH AND THROAT: The nose is without any evidence of any deformity. Mucous membranes are moist. Tongue is midline NECK: The neck is nontender and supple. RESPIRATORY: Normal respiratory effort is noted. There is no evidence of wheezing rhonchi or rales to auscultation. CARDIOVASCULAR: Regular rate and rhythm noted. There no murmurs rubs or gallops normal S1 normal S2 GASTROINTESTINAL: The abdomen is soft. Bowel sounds are present in all quadrants. Abdomen is nontender. MUSCULOSKELETAL/EXTREMITIES: There is no evidence of gross deformity. Full range of motion is noted in the hips and shoulders. SKIN: Trace pedal edema bilateral lower extremities. Mild venous stasis changes noted in both legs. There is no obvious evidence of any rash. There are no petechiae, pallor or cyanosis noted. NEUROLOGIC: Patient is awake alert and oriented x3. Medical Decision & Procedures ER Provider Diagnostic Interpretation: Radiology results as stated below per my review and radiologist interpretation: CHEST AND ABDOMEN 2 VIEWS HISTORY: diarrhea COMPARISON: Chest and abdominal series 09/02/2015. FINDINGS: The heart is top normal in size. No pleural effusions. No pneumothorax. Mild diffuse interstitial thickening most pronounced at the lung bases. This remains unchanged and is likely chronic. No new focal lung consolidations to suggest pneumonia. No evidence for pulmonary edema. Dextroscoliosis of the lumbar spine. No pneumoperitoneum. No pneumatosis. No renal or ureteral calculi. Nondilated gas-filled loops of large and small bowel seen throughout the abdomen. No evidence for bowel obstruction. Small to moderate amount of well-formed stool within the colon. IMPRESSION: 1. Stable mild chronic interstitial thickening. No acute process within the chest. 2. Unremarkable bowel gas pattern. No evidence for bowel obstruction. Electronically signed by: Armando Arcos M.D. Laboratory Results 02/11/18 14:53 Red Blood Count 3.70, Mean Corpuscular Volume 109.5, Mean Corpuscular Hemoglobin 34.3, Mean Corpuscular Hemoglobin Concent 31.4, Mean Platelet Volume 9.0, Neutrophils (%) (Auto) 81.3, Lymphocytes (%) (Auto) 10.1, Monocytes (%) ( Auto) 6.8, Eosinophils (%) (Auto) 1.4, Basophils (%) (Auto) 0.2, Neutrophils # ( Auto) 9.84, Lymphocytes # (Auto) 1.23, Monocytes # (Auto) 0.83, Eosinophils # ( Auto) 0.17, Basophils # (Auto) 0.03 02/11/18 14:53 Test 02/11/18 14:53 White Blood Count 12.13 K/uL (4.8-10.8) Red Blood Count 3.70 M/uL (4.2-5.4) Hemoglobin 12.7 g/dL (12.0-16.0) Hematocrit 40.5 % (37-47) Mean Corpuscular Volume 109.5 fL (80-100) Mean Corpuscular Hemoglobin 34.3 pg (25-34) Mean Corpuscular Hemoglobin Concent 31.4 g/dl (32-36) Platelet Count 344 K/uL (130-400) Mean Platelet Volume 9.0 fL (7.4-10.4) Neutrophils (%) (Auto) 81.3 % Lymphocytes (%) (Auto) 10.1 % Monocytes (%) (Auto) 6.8 % Eosinophils (%) (Auto) 1.4 % Basophils (%) (Auto) 0.2 % Neutrophils # (Auto) 9.84 K/uL (1.4-6.5) Lymphocytes # (Auto) 1.23 K/uL (1.2-3.4) Monocytes # (Auto) 0.83 K/uL (0.11-0.59) Eosinophils # (Auto) 0.17 K/uL (0-0.5) Basophils # (Auto) 0.03 K/uL (0-0.2) RDW Standard Deviation 54.8 fL (36.4-46.3) RDW Coefficient of Variation 13.9 % (11.5-14.5) Immature Granulocyte % (Auto) 0.2 % Immature Granulocyte # (Auto) 0.03 K/uL (0.00-0.02) Anion Gap 12.0 mmol/L (3-11) Est Creatinine Clear Calc Drug Dose 21.6 ml/min Estimated GFR () 23.4 Estimated GFR (Non- 20.2 BUN/Creatinine Ratio 27.5 (10-20) Calcium Level 8.5 mg/dl (8.5-10.1) Magnesium Level 2.4 mg/dl (1.8-2.4) Total Bilirubin 0.4 mg/dl (0.2-1) Direct Bilirubin 0.2 mg/dl (0-0.2) Aspartate Amino Transf (AST/SGOT) 27 U/L (15-37) Alanine Aminotransferase (ALT/SGPT) 34 U/L (12-78) Alkaline Phosphatase 91 U/L (45-117) Total Protein 7.5 gm/dl (6.4-8.2) Albumin 3.8 gm/dl (3.4-5.0) Laboratory results per my review. Medications Administered Medications (Trade) Dose Ordered Sig/Hillary Route Start Time Stop Time Status Last Admin Dose Admin Sodium Chloride 1,000 ml @ 999 mls/hr Q1H1M STAT IV 02/11/18 14:36 02/11/18 15:36 DC 02/11/18 14:53 999 MLS/HR Sodium Chloride 1,000 ml @ 999 mls/hr Q1H1M STAT IV 02/11/18 18:24 02/11/18 19:24 DC 02/11/18 18:30 999 MLS/HR Vancomycin HCl (Vancomycin Oral Soln) 250 mg ONE STAT PO 02/11/18 19:14 02/11/18 19:16 DC 02/11/18 19:32 250 MG ED Course 1431: The patient was evaluated in room C9. A complete history and physical examination were performed. 1436: Ordered NSS 1,000 ml @ 999 mls/hr IV. 1824: Ordered NSS 1,000 ml @ 999 mls/hr IV 1912: I updated the patient on her test results. 1913: Ordered Vancomycin HCl 250 mg PO. 1937: I discussed the patient's case with Dr. Isabel. The patient will be evaluated for further management. Medical Decision Differential diagnosis: Etiologies such as metabolic, infection, hypo/hyperglycemia, electrolyte abnormalities, cardiac sources, intracerebral event, toxicologic, neurologic, as well as others were entertained. Nursing notes reviewed. Patient's previous electronic medical records reviewed. The patient is a 73-year-old female who presented to the emergency department for an evaluation of diarrhea. The patient's had diarrhea for the last few days. She started having blood in her bowel movements. Her stool was grossly bloody and heme positive. Studies revealed that her bicarbonate was low and her BUN and creatinine were elevated. Her white blood cell count was also elevated. Her abdominal exam was not consistent with an acute surgical abdomen however her C. difficile toxin was positive. She was treated with IV fluids as well as vancomycin orally in the emergency department. I discussed the patient' s laboratory and radiographic studies with her. Because of her bleeding and other laboratory findings I did discuss her case with the on-call [facility] hospitalist. They have agreed to evaluate the patient in the emergency department for further management and disposition. Medication Reconcilliation Current Medication List: was personally reviewed by me Blood Pressure Screening Patient's blood pressure: Elevated blood pressure Blood pressure disposition: Referred to PCP (referred to hospitalist) Consults Time Called: 1934 Consulting Physician: Dr. Isabel Returned Call: 1937 I discussed the patient's case with Dr. Isabel. The patient will be evaluated for further management. Impression Primary Impression: Clostridium difficile colitis Additional Impressions: GI bleed Acute kidney injury Dehydration Scribe Attestation The scribe's documentation has been prepared under my direction and personally reviewed by me in its entirety. I confirm that the note above accurately reflects all work, treatment, procedures, and medical decision making performed by me. Departure Information Dispostion Being Evaluated By Hospitalist Prescriptions Vancomycin Hcl (Vancomycin) 250 Mg Cap 1 CAP PO QID, #40 CAP Prov: Louie Romero, 02/11/18 Referrals RV. Mims MD (PCP) Problem Qualifiers
[2018-02-11] MEDS ORDERED: LEVO88TA PO (15:06)
[2018-02-11] MEDS ORDERED: ATOR-24 PO (15:06)
[2018-02-11 15:19] LABS: BASO % 0.2 %; BASO ABS # 0.03 K/uL (0-0.2); EOS % 1.4 %; EOS ABS # 0.17 K/uL (0-0.5); HEMATOCRIT 40.5 % (37-47); HEMOGLOBIN 12.7 g/dL (12.0-16.0); IG# 0.03 K/uL (0.00-0.02); LYMPH % 10.1 %; LYMPH ABS # 1.23 K/uL (1.2-3.4); MEAN CELL VOLUME 109.5 fL (80-100); MEAN CORPUSCULAR HEMOGLOBIN 34.3 pg (25-34); MEAN CORPUSCULAR HGB CONC 31.4 g/dl (32-36); MONO % 6.8 %; MONO ABS # 0.83 K/uL (0.11-0.59); NEUT % 81.3 %; NEUT ABS # 9.84 K/uL (1.4-6.5); PLATELET COUNT 344 K/uL (130-400); RED CELL DISTRIBUTION WIDTH CV 13.9 % (11.5-14.5); RED CELL DISTRIBUTION WIDTH SD 54.8 fL (36.4-46.3); WHITE BLOOD COUNT 12.13 K/uL (4.8-10.8)
[2018-02-11 15:31] LABS: ALBUMIN 3.8 gm/dl (3.4-5.0); CALCIUM 8.5 mg/dl (8.5-10.1); CREATININE 2.29 mg/dl (0.60-1.20); POTASSIUM 4.8 mmol/L (3.5-5.1); TOTAL PROTEIN 7.5 gm/dl (6.4-8.2)
--- NOTE | 2018-02-11 16:08 | DIAGNOSTIC IMAGING REPORT ---
CHEST AND ABDOMEN 2 VIEWS HISTORY: diarrhea COMPARISON: Chest and abdominal series 09/02/2015. FINDINGS: The heart is top normal in size. No pleural effusions. No pneumothorax. Mild diffuse interstitial thickening most pronounced at the lung bases. This remains unchanged and is likely chronic. No new focal lung consolidations to suggest pneumonia. No evidence for pulmonary edema. Dextroscoliosis of the lumbar spine. No pneumoperitoneum. No pneumatosis. No renal or ureteral calculi. Nondilated gas-filled loops of large and small bowel seen throughout the abdomen. No evidence for bowel obstruction. Small to moderate amount of well-formed stool within the colon. IMPRESSION: 1. Stable mild chronic interstitial thickening. No acute process within the chest. 2. Unremarkable bowel gas pattern. No evidence for bowel obstruction. Electronically signed by: Armando Arcos M.D. 02/11/2018 4:07 PM Dictated Date/Time: 02/11/2018 4:03 PM
[2018-02-11] MEDS ORDERED: VANCOMYCIN HCL 250 MG/5 ML SOLN PO STA (19:14)
[2018-02-11] MEDS ORDERED: VANC1CAP3 PO (19:18)
[2018-02-11] MEDS ORDERED: ONDANSETRON INJ 2 MG/ML 2 ML VIAL IV PRN (21:00)
[2018-02-11] MEDS ORDERED: ALUMINUM/MAGNESIUM/SIMETH (MAALOX MAX) 30 ML UDC PO PRN (21:00)
--- NOTE | 2018-02-11 21:04 | History and Physical ---
History & Physical Date & Time of Service: Feb 11, 2018 at 21:04 Chief Complaint: Gen Illness Primary Care Physician: RV. Mims MD History of Present Illness 73 yo F with Pmhx of multiple episodes of C diff ( 3 in total) , HTN, Afib, CVA , Afib. Patient reports acute intermittent diarrhea x 1week, 2-3 watery stools day with red blood in stool on occasion. She reports nausea w/o vomiting subjective fever, chills, lightheadedness diaphoresis, headache, generalized weakness, dec'd appetite. She denies abdominal pain. fatigue, cough, sob, chest pain. Patient has a history of multiple occurrences of C diff diarrhea. one previous case of diarrhea involved david requiring dialysis 3 years ago. Patient arrived afebrile , tachycardic 99-112, WBC ct ct of 12.13, Elevated CR 2.29, normal at baseline, Cdiff positive stool, heme positive stool, thought no evidence of anemia. CT abdomen showing stable mild chronic interstitial thickening without acute process. She was given 250 mg Oral Vanc along with a 1 L NS bolus x2. 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 (22) Rhabdomyolysis (23) Sepsis associated hypotension (24) Sinusitis (25) SIRS (systemic inflammatory response syndrome) (26) Syncope (27) Tachycardia, unspecified (28) Tachycardia, unspecified (29) Trimalleolar fracture of ankle, closed Family History Heart disease Hypertension Social History Smoking Status: Never Smoker Drug Use: none Marital Status: Housing status: lives alone Occupational Status: retired Immunizations History of Influenza Vaccine: Yes History of Tetanus Vaccine?: Yes History of Pneumococcal: Yes History of Hepatitis B Vaccine: No Allergies Coded Allergies: Sulfa Antibiotics (Verified Allergy, Severe, STOMACH SWELLS; STOMACH BLOCKAGE? PER PATIENT, 7/22/18) Home Medications Scheduled Ascorbic Acid (Vitamin C), 1 TAB PO QAM Aspirin (Aspirin Ec), 81 MG PO QAM Atorvastatin (Lipitor), 40 MG PO HS Calcium/Vitamin D (Os-Juan Carlos 500 Plus D), 1 TAB PO BID Cholecalciferol (Vitamin D), 1 TAB PO QPM Cyanocobalamin (Vitamin B-12), 1,000 MCG PO QAM Fenofibrate (Fenofibrate), 48 MG PO QAM Gabapentin (Neurontin), 300 MG PO TID Labetalol Hcl (Labetalol Hcl), 200 MG PO BID Levothyroxine Sodium (Synthroid), 88 MCG PO QAM Mirtazapine (Mirtazapine), 7.5 MG PO HS Omeprazole (Prilosec), 20 MG PO QAM Probiotic Product (Probiotic), 1 CAP PO QAM Vancomycin Hcl (Vancomycin), 1 CAP PO QID Review of Systems Constitutional: No fever, No chills, No weakness Respiratory: No cough, No sputum, No shortness of breath Abdomen: + nausea, + diarrhea, No pain, No vomiting Genitourinary - Female: No dysuria, No urinary frequency, No urinary urgency Neurologic: No weakness, No numbness/tingling Integumentary: No rash, No itch Physical Exam Vital Signs Date Time Temp Pulse Resp B/P (MAP) Pulse Ox O2 Delivery O2 Flow Rate FiO2 02/11/18 19:46 105 16 157/84 95 Room Air 02/11/18 18:15 99 16 142/101 98 Room Air 02/11/18 17:27 102 02/11/18 17:11 101 16 120/80 98 Room Air 02/11/18 15:35 98 16 120/89 96 Room Air 02/11/18 14:37 36.9 112 16 111/87 95 Room Air GENERAL: alert, well appearing, well nourished, no distress EYE EXAM: normal conjunctiva, PERRL and EOM's grossly intact OROPHARYNX: no exudate, no erythema, lips, buccal mucosa, and tongue normal and mucous membranes are moist NECK: supple, no nuchal rigidity, no adenopathy, non-tender LUNGS: Clear to auscultation. Normal chest wall mechanics HEART: S1 normal and S2 normal ABDOMEN: abdomen soft, non-tender, normo-active bowel sounds, no masses, no rebound or guarding. BACK: Back is symmetrical on inspection and there is no deformity SKIN: no rashes and no bruising UPPER EXTREMITIES: upper extremities are grossly normal. LOWER EXTREMITIES: No pitting edema. NEURO EXAM: Normal sensorium, cranial nerves II-XII grossly intact, normal speech, no gross weakness of arms, no gross weakness of legs. Diagnostics Laboratory Results Results Past 24 Hours Test 02/11/18 14:53 Range/Units White Blood Count 12.13 4.8-10.8 K/uL Red Blood Count 3.70 4.2-5.4 M/uL Hemoglobin 12.7 12.0-16.0 g/dL Hematocrit 40.5 37-47 % Mean Corpuscular Volume 109.5 80-100 fL Mean Corpuscular Hemoglobin 34.3 25-34 pg Mean Corpuscular Hemoglobin Concent 31.4 32-36 g/dl Platelet Count 344 130-400 K/uL Mean Platelet Volume 9.0 7.4-10.4 fL Neutrophils (%) (Auto) 81.3 % Lymphocytes (%) (Auto) 10.1 % Monocytes (%) (Auto) 6.8 % Eosinophils (%) (Auto) 1.4 % Basophils (%) (Auto) 0.2 % Neutrophils # (Auto) 9.84 1.4-6.5 K/uL Lymphocytes # (Auto) 1.23 1.2-3.4 K/uL Monocytes # (Auto) 0.83 0.11-0.59 K/uL Eosinophils # (Auto) 0.17 0-0.5 K/uL Basophils # (Auto) 0.03 0-0.2 K/uL RDW Standard Deviation 54.8 36.4-46.3 fL RDW Coefficient of Variation 13.9 11.5-14.5 % Immature Granulocyte % (Auto) 0.2 % Immature Granulocyte # (Auto) 0.03 0.00-0.02 K/uL Sodium Level 136 136-145 mmol/L Potassium Level 4.8 3.5-5.1 mmol/L Chloride Level 107 98-107 mmol/L Carbon Dioxide Level 17 21-32 mmol/L Anion Gap 12.0 3-11 mmol/L Blood Urea Nitrogen 63 7-18 mg/dl Creatinine 2.29 0.60-1.20 mg/dl Est Creatinine Clear Calc Drug Dose 21.6 ml/min Estimated GFR () 23.4 Estimated GFR (Non- 20.2 BUN/Creatinine Ratio 27.5 10-20 Random Glucose 85 70-99 mg/dl Calcium Level 8.5 8.5-10.1 mg/dl Magnesium Level 2.4 1.8-2.4 mg/dl Total Bilirubin 0.4 0.2-1 mg/dl Direct Bilirubin 0.2 0-0.2 mg/dl Aspartate Amino Transf (AST/SGOT) 27 15-37 U/L Alanine Aminotransferase (ALT/SGPT) 34 12-78 U/L Alkaline Phosphatase 91 45-117 U/L Total Protein 7.5 6.4-8.2 gm/dl Albumin 3.8 3.4-5.0 gm/dl Microbiology Results 02/11/18 C.difficile Toxin B Gene (PCR), [place] Batch Pending 02/11/18 Shiga Toxin Test, [place] Batch Pending 02/11/18 Stool Culture, [place] Batch Pending 02/11/18 WBC Smear, [place] Batch Pending 02/11/18 C.difficile Toxin B Gene (PCR) - Final, Complete Positive for C. difficile toxin B gene 02/11/18 Shiga Toxin Test, Received Pending 02/11/18 Stool Culture, Received Pending 02/11/18 WBC Smear - Preliminary, Resulted Diagnostic Radiology CHEST AND ABDOMEN 2 VIEWS HISTORY: diarrhea COMPARISON: Chest and abdominal series 09/02/2015. FINDINGS: The heart is top normal in size. No pleural effusions. No pneumothorax. Mild diffuse interstitial thickening most pronounced at the lung bases. This remains unchanged and is likely chronic. No new focal lung consolidations to suggest pneumonia. No evidence for pulmonary edema. Dextroscoliosis of the lumbar spine. No pneumoperitoneum. No pneumatosis. No renal or ureteral calculi. Nondilated gas-filled loops of large and small bowel seen throughout the abdomen. No evidence for bowel obstruction. Small to moderate amount of well-formed stool within the colon. IMPRESSION: 1. Stable mild chronic interstitial thickening. No acute process within the chest. 2. Unremarkable bowel gas pattern. No evidence for bowel obstruction. Impression Assessment and Plan 73 yo F with Pmhx of multiple episodes of C diff (4 in total) , HTN, Afib, CVA, Afib. Patient reports acute intermittent diarrhea x 1week, 2-3 watery stools day with red blood in stool on occasion Acute Diarrhea, Heme positive stool - likely secondary to Recurrent Cdiff, - presentation goode 4th presentation with Cdiff Diarrhea - Has been treated with oral Vancomycin. Given recurrences, will Start Fidaxomicin PO alternatively - not on abx on arrival, patient has been on PPI which may increase risk of C diff, held on arrival - IV NS at 80 mls/hr - F/u Stool cx's - Blood in stool: not anemic on arrival, red blood in stool in ED. fecal occult positive - XR Abdomen unremarkable - Continue to monitor CBC daily HTN - BP controlled - Restart home Labetalol 200 mg BID Tachycardia - appears sinus possibly secondary to dehydration, BP normal - F/u EKG - IV hydration as above Paroxysmal Atrial Fibrillation -not currently in Afib - Rate control with Labetalol - not on anticoagulation - Continue Aspirin HLD - Lipitor, Fenofibrate GERD -Held Prilosec, consider discontinuing finding alternative on discharge due to C diff risk patient denies GERD symptoms at present Depression Anxiety -Mirtazapine Disposition -Admit Med Surg DVT PPX; SCD's Code status FULL Resuscitation Status VTE Prophylaxis Will order VTE Prophylaxis: Yes Note Total Time: Critical Care 30 - 74 minutes History Patient seen and examined, chart reviewed, case discussed with Dr. Albright and I agree with his assessment and plan as documented above. Briefly, patient is a 73yo female with history of recurrent c. difficile infection. Her first episode was in 2014 complicated by septic shock, DAVID requiring HD and ICU care. She had two additional episodes since then. Prior treatments to include Flagyl , Vanc and prolonged taper. She has seen ID in the past. Patient with intermittent diarrhea x 3 weeks, acutely worsened over the last week. Also with subjective fevers/chills/poor appetite. C.diff + On physical exam she is afebrile, mildly tachycardic at 110 bpm during my encounter. Pleasant in NAD HEENT with dry oral mucosa , right cochlear implant in place, otherwise negative Heart +S1/S2, regular, tachycardic Lungs CTA Abd soft, nontender, nondistended, tympanic to percussion, no masses/ organomegaly or ascites Ext warm, well perfused Labs and images reviewed - significant for elevated WBC at 12.13, Macrocytosis with ISZ=586.5, elevated BUN=63, Cr=2.29 with relatively normal baseline/ episodes of DAVID, HCO3 low at 17 CT of the abdomen performed which was unremarkable Assessment/Plan - 73yo female with recurrent C.diff presenting with the same. Moderate severity based on Cr of 2.29 -Fidaxomicin 200mg po BID x 10 days -IV hydration, avoid nephrotoxic agents, renal dosing where appropriate, monitor BUN/Cr/electrolytes -Macrocytosis was worked up prior with normal B12, Folate and MMA -Remainder of plan as above
[2018-02-11 22:01] VITALS: BP 144/78; PULSE 119; TEMP 37.3; O2SAT 96
[2018-02-11 23:06] VITALS: Ht 167.6 cm; Wt 76.3 kg
[2018-02-11] MEDS: FIDAXOMICIN TAB 200 MG TAB PO SCH (23:50)
[2018-02-11] MEDS: GABAPENTIN 300 MG CAP PO SCH (23:51)
[2018-02-11] MEDS: LABETALOL HCL 200 MG TAB PO SCH (23:51)
[2018-02-11] MEDS: SODIUM CHLORIDE 0.9% 1000ML 1,000 ML IV SCH (23:51)
[2018-02-11] MEDS: MIRTAZAPINE TAB 15 MG TAB PO SCH (23:52)
[2018-02-12] VITALS (7 sets, daily range): BP systolic 107–133; BP diastolic 57–69; PULSE 102–120; TEMP 37; O2SAT 94–96
[2018-02-12] MEDS: ACETAMINOPHEN 325 MG TAB PO PRN ×3 (00:11→21:09)
[2018-02-12 05:51] LABS: HEMATOCRIT 34.2 % (37-47); HEMOGLOBIN 10.9 g/dL (12.0-16.0); MEAN CELL VOLUME 110.3 fL (80-100); MEAN CORPUSCULAR HEMOGLOBIN 35.2 pg (25-34); MEAN CORPUSCULAR HGB CONC 31.9 g/dl (32-36); MEAN PLATELET VOLUME 8.9 fL (7.4-10.4); PLATELET COUNT 262 K/uL (130-400); RED CELL DISTRIBUTION WIDTH SD 56.1 fL (36.4-46.3); WHITE BLOOD COUNT 10.87 K/uL (4.8-10.8)
[2018-02-12] MEDS: LEVOTHYROXINE 88 MCG TAB PO SCH (06:09)
[2018-02-12 06:12] LABS: BASO % 0.2 %; BASO ABS # 0.02 K/uL (0-0.2); EOS % 1.6 %; EOS ABS # 0.17 K/uL (0-0.5); IG# 0.04 K/uL (0.00-0.02); LYMPH % 17.4 %; LYMPH ABS # 1.89 K/uL (1.2-3.4); MONO % 5.2 %; MONO ABS # 0.56 K/uL (0.11-0.59); NEUT % 75.2 %; NEUT ABS # 8.19 K/uL (1.4-6.5)
[2018-02-12 06:22] LABS: ALBUMIN 2.8 gm/dl (3.4-5.0); CALCIUM 7.9 mg/dl (8.5-10.1); CREATININE 1.27 mg/dl (0.60-1.20); POTASSIUM 4.4 mmol/L (3.5-5.1)
[2018-02-12] MEDS: FENOFIBRATE 48 MG TAB PO SCH (07:53)
[2018-02-12] MEDS: GABAPENTIN 300 MG CAP PO SCH ×3 (07:54→21:01)
[2018-02-12] MEDS: LACTOBACILLUS ACIDOPHILUS (FLORANEX) TAB PO SCH (07:55)
[2018-02-12] MEDS: FIDAXOMICIN TAB 200 MG TAB PO SCH ×2 (07:56→21:00)
[2018-02-12] MEDS: LABETALOL HCL 200 MG TAB PO SCH ×2 (07:57→21:02)
--- NOTE | 2018-02-12 08:07 | Clinical Documentation Query ---
CLINICAL DOCUMENTATION QUERY 73 year old female who presents with recurrent C.Diff. Creatinine was elevated at 2.29 on presentation. In your clinical opinion is this patient being managed for: ( x ) DAVID in setting of dehydration and recurrent C.Diff ( ) Not Agree ( ) Other explanation of clinical findings (No explanation is considered a No Response) ( ) Unable to determine ( ) Need to Discuss (Phone CDS or qliq) (No discussion is considered a No Response) The medical record reflects the following clinical findings, treatment, and risk factors. Clinical Indicators: BUN 63, Creatinine 2.29, GFR 20.2. Treatment: IVF boluses the NSS primary, daily PRP's, Risk Factors: Age, diarrhea, C.diff with bleeding. Please clarify and document your clinical opinion in the progress notes and discharge summary. Terms such as "probable", "suspected", "likely", "questionable", "possible", or "still to be ruled out" are acceptable. IF IN AGREEMENT, YOU MUST DOCUMENT ABOVE DIAGNOSTIC STATEMENT IN DAILY PROGRESS NOTES AND DISCHARGE SUMMARY. This document is not part of the patient's record. Thank You, Elie Lau RN [phone] & via qlicCONNECT
[2018-02-12] MEDS: ATORVASTATIN 40 MG TAB PO SCH (09:01)
[2018-02-12] MEDS: SODIUM CHLORIDE 0.9% 1000ML 1,000 ML IV SCH ×2 (09:17→20:55)
--- NOTE | 2018-02-12 09:56 | Family Medicine Progress Note ---
Progress Note Date of Service Feb 12, 2018. Subjective Pt resting in bed this morning, reports mild back pain. 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 Denies abdominal pain currently. Denies any stooling this morning. Per nursing, there is a healing wound on her right second toe. Pt admits she stubbed it in the kitchen the other day. ROS See HPI for pertinent positives and negatives. Otherwise denies new headache, vision change, chest pain, dyspnea, abdominal pain, dysuria, or numbness tingling in extremities. Medications Current Inpatient Medications Medications (Trade) Dose Ordered Sig/Hillary Route Start Time Stop Time Status Last Admin Dose Admin Acetaminophen (Tylenol Tab) 650 mg Q4H PRN PO 02/11/18 21:00 03/13/18 20:59 02/12/18 09:23 650 MG Al Hydrox/Mg Hydrox/Simethicone (Maalox Max Susp) 15 ml Q4H PRN PO 02/11/18 21:00 03/13/18 20:59 Ondansetron HCl (Zofran Inj) 4 mg Q6H PRN IV 02/11/18 21:00 03/13/18 20:59 Sodium Chloride 1,000 ml @ 100 mls/hr Q10H IV 02/11/18 21:00 03/13/18 20:59 02/12/18 09:17 100 MLS/HR Fidaxomicin (Dificid Tab) 200 mg BID PO 02/11/18 21:00 02/21/18 20:59 02/12/18 07:56 200 MG Atorvastatin Calcium (Lipitor Tab) 40 mg QAM PO 02/12/18 09:00 03/14/18 08:59 02/12/18 09:01 40 MG Fenofibrate (Tricor Tab) 48 mg QAM PO 02/12/18 09:00 03/14/18 08:59 02/12/18 07:53 48 MG Gabapentin (Neurontin Cap) 300 mg TID PO 02/11/18 21:00 03/13/18 20:59 02/12/18 07:54 300 MG Labetalol HCl (Normodyne Tab) 200 mg BID PO 02/11/18 21:00 03/13/18 20:59 02/12/18 07:57 200 MG Levothyroxine Sodium (Synthroid Tab) 88 mcg DAILYBB PO 02/12/18 06:30 03/14/18 06:29 02/12/18 06:09 88 MCG Mirtazapine (Remeron Tab) 7.5 mg HS PO 02/11/18 21:00 03/13/18 20:59 02/11/18 23:52 7.5 MG Lactobacillus Acidophilus (Floranex Tab) 4 tab QAM PO 02/12/18 09:00 03/14/18 08:59 02/12/18 07:55 4 TAB Objective Vital Signs Date Time Temp Pulse Resp B/P (MAP) Pulse Ox O2 Delivery O2 Flow Rate FiO2 02/12/18 08:00 94 Room Air 02/12/18 07:49 120 111/69 (83) 02/12/18 07:03 37.0 108 22 108/68 (81) 94 Room Air 02/12/18 00:00 Room Air 02/12/18 00:00 120 20 107/69 (82) 95 Room Air 02/11/18 23:06 Room Air 02/11/18 22:01 37.3 119 18 144/78 (100) 96 02/11/18 21:39 107 16 166/88 96 02/11/18 19:46 105 16 157/84 95 Room Air 02/11/18 18:15 99 16 142/101 98 Room Air 02/11/18 17:27 102 02/11/18 17:11 101 16 120/80 98 Room Air 02/11/18 15:35 98 16 120/89 96 Room Air 02/11/18 14:37 36.9 112 16 111/87 95 Room Air Physical Exam Notes: GENERAL: Awake, alert, appears stated age, in no distress HENT: Normocephalic, atraumatic. Moist mucous membranes EYES: Normal conjunctiva. Sclera non-icteric. EOMI. NECK: Supple. Full range of motion. no JVD RESPIRATORY: Clear to auscultation. CARDIAC: Regular rate, normal rhythm. Extremities warm and well perfused. Pulses equal. ABDOMEN: Soft, non-distended. No tenderness to palpation. No rebound or guarding. No masses. Normoactive BS. LOWER EXTREMITIES: Calves are equal size bilaterally and non-tender. No edema. No discoloration. NEURO: No motor deficits noted. SKIN: No rash or jaundice noted. Laboratory Results 02/12/18 05:32 Red Blood Count 3.10, Mean Corpuscular Volume 110.3, Mean Corpuscular Hemoglobin 35.2, Mean Corpuscular Hemoglobin Concent 31.9, Mean Platelet Volume 8.9, Neutrophils (%) (Auto) 75.2, Lymphocytes (%) (Auto) 17.4, Monocytes (%) ( Auto) 5.2, Eosinophils (%) (Auto) 1.6, Basophils (%) (Auto) 0.2, Neutrophils # ( Auto) 8.19, Lymphocytes # (Auto) 1.89, Monocytes # (Auto) 0.56, Eosinophils # ( Auto) 0.17, Basophils # (Auto) 0.02 02/12/18 05:32 Test 02/11/18 14:53 02/12/18 00:00 02/12/18 05:32 Magnesium Level 2.4 mg/dl (1.8-2.4) Direct Bilirubin 0.2 mg/dl (0-0.2) Urine Color YELLOW Urine Appearance CLEAR (CLEAR) Urine pH 5.5 (4.5-7.5) Urine Specific [place] 1.017 (1.000-1.030) Urine Protein TRACE (NEG) Urine Glucose (UA) NEG (NEG) Urine Ketones 1+ (NEG) Urine Occult Blood 1+ (NEG) Urine Nitrite NEG (NEG) Urine Bilirubin NEG (NEG) Urine Urobilinogen NEG (NEG) Urine Leukocyte Esterase TRACE (NEG) Urine WBC (Auto) 1-5 /hpf (0-5) Urine RBC (Auto) 0-4 /hpf (0-4) Urine Hyaline Casts (Auto) 0 /lpf (0-5) Urine Epithelial Cells (Auto) 10-20 /lpf (0-5) Urine Bacteria (Auto) NEG (NEG) White Blood Count 10.87 K/uL (4.8-10.8) Red Blood Count 3.10 M/uL (4.2-5.4) Hemoglobin 10.9 g/dL (12.0-16.0) Hematocrit 34.2 % (37-47) Mean Corpuscular Volume 110.3 fL (80-100) Mean Corpuscular Hemoglobin 35.2 pg (25-34) Mean Corpuscular Hemoglobin Concent 31.9 g/dl (32-36) Platelet Count 262 K/uL (130-400) Mean Platelet Volume 8.9 fL (7.4-10.4) Neutrophils (%) (Auto) 75.2 % Lymphocytes (%) (Auto) 17.4 % Monocytes (%) (Auto) 5.2 % Eosinophils (%) (Auto) 1.6 % Basophils (%) (Auto) 0.2 % Neutrophils # (Auto) 8.19 K/uL (1.4-6.5) Lymphocytes # (Auto) 1.89 K/uL (1.2-3.4) Monocytes # (Auto) 0.56 K/uL (0.11-0.59) Eosinophils # (Auto) 0.17 K/uL (0-0.5) Basophils # (Auto) 0.02 K/uL (0-0.2) RDW Standard Deviation 56.1 fL (36.4-46.3) RDW Coefficient of Variation 14.0 % (11.5-14.5) Immature Granulocyte % (Auto) 0.4 % Immature Granulocyte # (Auto) 0.04 K/uL (0.00-0.02) Echinocytes 1+ Prothrombin Time 11.0 SECONDS (9.0-12.0) Prothromb Time International Ratio 1.0 (0.9-1.1) Anion Gap 13.0 mmol/L (3-11) Est Creatinine Clear Calc Drug Dose 39.9 ml/min Estimated GFR () 47.8 Estimated GFR (Non- 41.2 BUN/Creatinine Ratio 32.0 (10-20) Calcium Level 7.9 mg/dl (8.5-10.1) Total Bilirubin 0.4 mg/dl (0.2-1) Aspartate Amino Transf (AST/SGOT) 51 U/L (15-37) Alanine Aminotransferase (ALT/SGPT) 34 U/L (12-78) Alkaline Phosphatase 69 U/L (45-117) Total Protein 6.0 gm/dl (6.4-8.2) Albumin 2.8 gm/dl (3.4-5.0) Globulin 3.2 gm/dl (2.5-4.0) Albumin/Globulin Ratio 0.9 (0.9-2) Date/Time Source Procedure Growth Status 02/11/18 17:01 Stool C.difficile Toxin B Gene (PCR) - Final Positive for C. difficile toxin B gene Complete Assessment and Plan 73F here for h/o loose stools and poor po intake. Admitted with elevated creatinine and heme + stool. History significant for 3 other bouts of c diff + diarrhea, once having sequelae of DAVID requiring temporary dialysis. recurrent c. diff + stools, also - Mar 2015, then Apr 2015, then Aug 2015 - begun on fidaxomicin overnight - contact precautions - if fails, could consider fecal transplant in outpatient setting heme + stools - hgb is wnl on admission (12.7), diluted after fluids overnight. Follow cbc q12 DAVID in setting of dehydration and recurrent C.Diff - fluid hydration @ 100ml/hr - follow BMP Afib on ASA, HTN/HLD - currently normal sinus - due to subjective h/o blood in stools, aspirin held. Hgb is wnl. Consider restart ASA - continue labetalol 200 BID - continue home lipitor, fenofibrate GERD - prilosec held due to increasing c diff risk - can switch to H2 saturnino PRN. No reflux sx's currently. Depression/anxiety - continue home mirtazapine FEN/GI - regular diet - IVF 2 L given in ED, continue hydration NSS @ 100ml/hr DVT ppx: mechanical SCD Dispo: med/surg. PT/OT. Resident Physician Supervision Note: I interviewed and examined the patient. Discussed with Dr. Velazquez and agree with findings and plan as documented in the note. Any exceptions or clarifications are listed here: None Documented By: Robert Armstrong feeling better on dificid would like to look into fecal transplant - believes this is third recurrence of Cdiff vitals noted nad breathing unlabored no pallor or icterus recurrent Cdiff -improving on dificid may need to consider fecal transplant, but hopefully home tomorrow if ongoing improvement Continued [facility] stay due to: multiple IV medications needed Resident Tracking Resident Involvement: Resident Care Provided Care Provided: Adult Hospital Medicine
[2018-02-12] MEDS ORDERED: DFC200 PO (17:36)
[2018-02-12] MEDS: MIRTAZAPINE TAB 15 MG TAB PO SCH (21:01)
[2018-02-13] VITALS: O2SAT 94
[2018-02-13] MEDS: LEVOTHYROXINE 88 MCG TAB PO SCH (06:07)
[2018-02-13] MEDS: SODIUM CHLORIDE 0.9% 1000ML 1,000 ML IV SCH (06:07)
[2018-02-13 07:10] VITALS: BP 156/94; PULSE 95; TEMP 36.7; O2SAT 95
[2018-02-13 08:00] VITALS: O2SAT 96
[2018-02-13 08:10] VITALS: BP 154/83; PULSE 105
[2018-02-13] MEDS: FIDAXOMICIN TAB 200 MG TAB PO SCH (08:11)
[2018-02-13] MEDS: LACTOBACILLUS ACIDOPHILUS (FLORANEX) TAB PO SCH (08:12)
[2018-02-13] MEDS: ATORVASTATIN 40 MG TAB PO SCH (08:12)
[2018-02-13] MEDS: LABETALOL HCL 200 MG TAB PO SCH (08:12)
[2018-02-13] MEDS: GABAPENTIN 300 MG CAP PO SCH ×2 (08:12→13:52)
[2018-02-13] MEDS: FENOFIBRATE 48 MG TAB PO SCH (08:13)
[2018-02-13 10:19] VITALS: BP 154/83; PULSE 105; TEMP 36.7; O2SAT 96
[2018-02-13] MEDS ORDERED: RANI150T3 PO (10:31)
--- NOTE | 2018-02-13 10:39 | Discharge Instructions ---
Discharge Instructions Date of Service Feb 13, 2018. Admission Reason for Admission: Recurrent Clostridium Difficile Diarrhea Discharge Discharge Diagnosis / Problem: Recurrent clostridium difficile diarrhea Discharge Goals Goal(s): Decrease discomfort, Improve function, Increase independence, Improve disease control, Diagnostic testing, Therapeutic intervention Activity Recommendations Activity Limitations: per Instructions/Follow-up section . Instructions / Follow-Up Instructions / Follow-Up You were admitted due to concern for weakness and loose stools and were found to have stools + for c. diff. We started you on fidaxomicin twice a day. This seems to be helping your infection. Seeing as this is your fourth infection according to our records, we recommend looking in to fecal transplant in the future. This is being looked in to by our case management folks, and they will be in contact with you and your primary doctor regarding this. In the meantime, a certain class of drugs called proton pump inhibitors has been associated with higher risk of recurrent c. diff infection. We recommend switching from prilosec to Zantac (which is in the class called H2 saturnino) - both show good efficacy with reflux symptoms. You can take this as needed, once a day. We have made no other changes to your chronic medications. You do not need to take vancomycin caps at this time while you are on fidaxomicin. Please follow up with your primary doctor within 1 week of discharge. Be Well A [facility] Current Hospital Diet Patient's current hospital diet: Regular Diet Discharge Diet Recommended Diet: Regular Diet Pending Studies Studies pending at discharge: no Medical Emergencies . Who to Call and When: Medical Emergencies: If at any time you feel your situation is an emergency, please call 911 immediately. . Non-Emergent Contact Non-Emergency issues call your: Primary Care Provider Call Non-Emergent contact if: you have a fever, temperature is above 101.5, your pain is unusual for you, your pain is concerning you, you have any medication questions . . "Provider Documentation" section prepared by Tawnya Velazquez. .
--- NOTE | 2018-02-13 10:40 | Discharge Summary ---
Discharge Summary Date of Service Feb 13, 2018. Discharge Summary Admission Date: Feb 11, 2018 at 21:02 Discharge Date: Feb 13, 2018 Discharge Disposition: Home Principal Diagnosis: recurrent c. diff infection Immunizations: Have You Had Influenza Vaccine: Yes History of Tetanus Vaccine?: Yes History of Pneumococcal: Yes History of Hepatitis B Vaccine: No Medication Reconciliation New Medications: Ranitidine Hcl (Zantac) 150 Mg Tab 150 MG PO DAILY for 30 Days, #30 TAB Fidaxomicin (Dificid) 200 Mg Tab 200 MG PO BID for 10 Days, #20 TAB Continued Medications: Ascorbic Acid (Vitamin C) 500 Mg Tab 1 TAB PO QAM Aspirin (Aspirin Ec) 81 Mg Tab 81 MG PO QAM Atorvastatin (Lipitor) 40 Mg Tab 40 MG PO HS, TAB Calcium/Vitamin D (Os-Juan Carlos 500 Plus D) Tab 1 TAB PO BID, TAB Cholecalciferol (Vitamin D) 1,000 Unit Tab 1 TAB PO QPM Cyanocobalamin (Vitamin B-12) 1,000 Mcg Tab 1000 MCG PO QAM, TAB Fenofibrate (Fenofibrate) 48 Mg Tab 48 MG PO QAM Gabapentin (Neurontin) 300 Mg Cap 300 MG PO TID, CAP 3 Refills Labetalol Hcl (Labetalol Hcl) 200 Mg Tab 200 MG PO BID, TAB Levothyroxine Sodium (Synthroid) 88 Mcg Tab 88 MCG PO QAM, TAB Mirtazapine (Mirtazapine) 7.5 Mg Tab 7.5 MG PO HS Probiotic Product (Probiotic) 1 Cap Cap 1 CAP PO QAM Discontinued Medications: Omeprazole (Prilosec) 20 Mg Cap 20 MG PO QAM Vancomycin Hcl (Vancomycin) 250 Mg Cap 1 CAP PO QID, #40 CAP Discharge Exam Pt comfortable in bed, tolerating PO on day of discharge. Reports no loose or bloody BMs. ROS See HPI for pertinent positives and negatives. Otherwise denies new headache, vision change, chest pain, dyspnea, abdominal pain, loose or bloody stools, dysuria, or numbness tingling in extremities. PHYSICAL EXAM GENERAL: Awake, alert, appears stated age, in no distress HENT: Normocephalic, atraumatic. Moist mucous membranes EYES: Normal conjunctiva. Sclera non-icteric. EOMI. NECK: Supple. Full range of motion. no JVD RESPIRATORY: Clear to auscultation. CARDIAC: Regular rate, normal rhythm. Extremities warm and well perfused. Pulses equal. ABDOMEN: Soft, non-distended. No tenderness to palpation. No rebound or guarding. No masses. Normoactive BS. LOWER EXTREMITIES: Calves are equal size bilaterally and non-tender. No edema. No discoloration. NEURO: No motor deficits noted. SKIN: No rash or jaundice noted. Hospital Course Ms. Smith is a 73F here for malaise, h/o loose stools and poor po intake. When she was admitted, she was found to have elevated creatinine, c. diff + and heme + stool. On review of records, her medical history significant for 3 other bouts of c diff + diarrhea ( Mar 2015, then Apr 2015, then Aug 2015), once having sequelae of DAVID requiring temporary dialysis. Tolerated fidaxomicin here , begun and sent home with script. We also have consulted with case management for arranging for outpatient fecal transplant. Pt was amenable to this. For her DAVID in setting of dehydration and recurrent C.Diff hydrated her, and her creatinine trended back down to baseline. Pt also has Atrial fibrillation (on ASA), as well as HTN/HLD. Was sinus here. Given heme + stools, held ASA, but reasonable to restart on discharge due to no evidence of significant anemia. Recommend continue home labetalol 200 BID , lipitor, fenofibrate Pt is on prilosec daily for reflux -- we recommend changing this to H2 saturnino due to some evidence for PPIs associated with increased risk of recurrent c diff. For her depression/anxiety- continue home mirtazapine Hoa Velazquez Resident Physician Supervision Note: I interviewed and examined the patient. Discussed with Dr. Velazquez and agree with findings and plan as documented in the note. Any exceptions or clarifications are listed here: None Documented By: Robert Armstrong feeling better no BM, wants to go home vitals noted nad breathing unlabored no pallor or icterus recurrent Cdiff colitis (technically with mild SIRS making for sepsis on admission) -improved nicely michael ghotra - finish course of therapy - but since this has been recurrent and refractory for her - will as navigator to facilitate GI eval for appropriateness of fecal transplant - that way should she recur after treatment she'll have referral process already underway Total Time Spent: Greater than 30 minutes This includes examination of the patient, discharge planning, medication reconciliation, and communication with other providers. Discharge Instructions Please refer to the electronic Patient Visit Report (Discharge Instructions) for additional information. Additional Copies To RV. Mims MD Resident Tracking Resident Involvement: Resident Care Provided Care Provided: Adult [facility]
== END 2018-02-13 14:09 | disposition home or self-care (01) | DRG 372 ==
LOC: EDBD 14:30 → C.EDC 14:31 → C.MED 21:02 → ENRESERV 21:25
PROVIDERS: ADMIT Internal Medicine; ATTEND Family Medicine
DX: A04.71 Enterocolitis due to Clostridium difficile, recurrent (principal); N17.9 Acute kidney failure, unspecified; I48.92 Unspecified atrial flutter; Z87.891 Personal history of nicotine dependence; E86.0 Dehydration; I10 Essential (primary) hypertension; Z86.72 Personal history of thrombophlebitis; Z82.49 Family history of ischemic heart disease and other diseases of the circulatory system; I48.0 Paroxysmal atrial fibrillation; E78.5 Hyperlipidemia, unspecified; F41.8 Other specified anxiety disorders; K21.9 Gastro-esophageal reflux disease without esophagitis

== ENCOUNTER 2018-11-09 15:25 | Inpatient (IN) ==
[2018-11-09] MEDS ORDERED: SODIUM CHLORIDE 0.9% 1000ML 1,000 ML IV SCH ×2 (15:45→20:25)
[2018-11-09 16:27] LABS: Basophils # (auto) 0.03 K/uL (0-0.2); Basophils % (auto) 0.4 %; Eosinophils # (auto) 0.09 K/uL (0-0.5); Eosinophils % (auto) 1.2 %; Hematocrit (blood only) 36.8 % (37-47); Hemoglobin 11.8 g/dL (12.0-16.0); Immature Granulocytes # (auto) 0.03 K/uL (0.00-0.02); Immature Granulocytes % (auto) 0.4 %; Lymphocytes # (auto) 1.45 K/uL (1.2-3.4); Lymphocytes % (auto) 19.8 %; Mean Corpuscular Hgb Conc 32.1 g/dL (32-36); Mean Corpuscular Volume 112.5 fL (80-100); Mean Platelet Volume 9.1 fL (7.4-10.4); Monocytes # (auto) 0.42 K/uL (0.11-0.59); Monocytes % (auto) 5.7 %; Neutrophils % (auto) 72.5 %; Platelet Count 343 K/uL (130-400); RDW Coefficient of Variation 14.6 % (11.5-14.5); RDW Standard Deviation 59.8 fL (36.4-46.3); Red Blood Count 3.27 M/uL (4.2-5.4); White Blood Count 7.32 K/uL (4.8-10.8)
[2018-11-09 16:37] LABS: Prothrombin Time 10.6 Seconds (9.0-12.0)
--- NOTE | 2018-11-09 16:42 | CT Scan Report ---
HEAD CT NONCONTRAST CT DOSE: 1277.12 mGycm HISTORY: syncope TECHNIQUE: Multiaxial CT images of the head were performed without the use of intravenous contrast. A utomated exposure control was utilized for this study. A dose lowering technique was utilized adheri ng to the principles of ALARA. Comparison: Head CT 12/25/2016. Findings: Extensive metallic artifact from the right-sided cochlear implant. There is no definite mass, hematoma, midline shift, or acute infarct. The ventricles and sulci are within normal limits f or age. Completely opacified left maxillary sinus. This remains unchanged. Impression: 1. No acute intracranial abnormality. 2. Extensive metallic artifact in the right cochlear implant. 3. No change in the opacified left maxillary sinus. Electronically signed by: Armando Arcos M.D. 11/09/2018 4:40 PM
[2018-11-09 16:48] LABS: Alanine Aminotransferase 34 U/L (12-78); Albumin Level 3.9 gm/dl (3.4-5.0); Aspartate Aminotransferase 28 U/L (15-37); Blood Urea Nitrogen 92 mg/dl (7-18); Calcium 8.7 mg/dl (8.5-10.1); Carbon Dioxide 16 mmol/L (21-32); Chloride 106 mmol/L (98-107); Creatinine Clr Calc Pharmacy 10.8 ml/min; Est GFR (African American) 11.4; Est GFR (Non-African American) 9.8; Glucose 88 mg/dl (70-99); Magnesium 2.6 mg/dl (1.8-2.4); Potassium 4.7 mmol/L (3.5-5.1); Sodium 133 mmol/L (136-145)
--- NOTE | 2018-11-09 16:49 | CT Scan Report ---
CT SCAN OF THE ABDOMEN AND PELVIS WITHOUT CONTRAST CLINICAL HISTORY: Abdominal distention. Syncope. COMPARISON STUDY: 06-10 TECHNIQUE: CT scan of the abdomen and pelvis was performed from the lung bases to the proximal femurs . Images are reviewed in the axial, sagittal, and coronal planes. IV contrast was not administered fo r this examination. A dose lowering technique was utilized adhering to the principles of ALARA. CT DOSE: 904.12 mGycm FINDINGS: Lower chest: Underlying emphysema is suspected. There is no focal pulmonary consolidation. Liver: Slight peripheral right hepatic lobe anterior ductal prominence remain stable. No masses are v isualized in this noncontrast study. Gallbladder: The gallbladder appears contracted and lobulated. Spleen: Normal in size and attenuation. Pancreas: Unremarkable. Adrenal glands: Unremarkable. Kidneys: No renal, ureteral, or bladder calculi are visualized. There is a 9 mm exophytic right renal lesion likely representing a hyperdense cyst Bowel: There are no transition zones indicate bowel obstruction. There is no acute diverticulitis. Th ere are no findings to indicate acute appendicitis. Peritoneum: There is no intraperitoneal free air or abdominal ascites. Vasculature: The abdominal aorta is normal in course and caliber. Adenopathy: None. Pelvic viscera: The bladder, and pelvic viscera are unremarkable. Skeletal structures: There is an old L1 compression fracture. IMPRESSION: 1. No evidence of bowel obstruction. No evidence of free air 2. No evidence of acute appendicitis. No evidence of acute diverticulitis 3. No renal, ureteral, or bladder calculi identified. Electronically signed by: Daniel Prather M.D. 11/09/2018 4:48 PM
[2018-11-09 16:59] LABS: Alkaline Phosphatase 90 U/L (45-117); Bilirubin,Total 0.5 mg/dl (0.2-1); Globulin 3.9 gm/dl (2.5-4.0); Total Protein 7.8 gm/dl (6.4-8.2); Troponin I < 0.015 ng/ml (0-0.045)
[2018-11-09 17:12] LABS: Macrocytosis Present; Spherocytes Occasional
--- NOTE | 2018-11-09 18:03 | XRay Report ---
XR chest 1V portable CLINICAL HISTORY: weakness COMPARISON STUDY: 05/23/2018 FINDINGS: The heart is borderline enlarged. There are bilateral lower lung zone pulmonary airspace op acities. Diagnostic considerations include pulmonary edema versus a bilateral infectious/inflammatory process. Clinical and radiographic follow-up is recommended. There are no significant pleural effusi ons.[ IMPRESSION: Interval development of bilateral lower lung zone pulmonary airspace opacities (pulmonary edema versus a bilateral infectious/inflammatory process). Clinical and radiographic follow-up is re commended. Electronically signed by: Daniel Prather M.D. 11/09/2018 6:02 PM
--- NOTE | 2018-11-09 19:26 | History & Physical Report ---
Date of Service November 09, 2018 Assessment & Plan (1) Renal failure: Unclear etiology. Most likely would be poor oral intake creating dehydration compounded by LOLIS inhibitor. Check urinalysis and micro, check fractional excretion of sodium. Nothing obstructive on imaging. Consult nephrology for further differential diagnostic considerations such as further intrinsic renal disease, although further workup of this would probably be contingent on striking findings on urine sediment. Fluid bolus, and then continue hydration with saline. Follow basic metabolic panel. Check CPK for completeness. Check CRP and ESR (2) Hypertension: (3) Atrial flutter: Listed in her hospital records, although not outpatient. Currently sinus. We will need to investigate further (4) Abnormal chest x-ray: Does not correlate clinically, her lungs are clear she is not hypoxic she is not short of breath she shows no respiratory symptoms. Continue to follow. Low threshold for CT of chest (5) Syncope: Sounds to have been a vasovagal due to crampy abdominal pain. She seems to have suffered no significant trauma. Likely also physician relations representative of a degree of dehydration that may have been leading to the renal failure. (6) Metabolic acidosis: Likely secondary to the renal failure. Follow with hydration (7) DVT prophylaxis: Heparin subcu (8) Discharge planning issues: (9) Anemia: Chronic, follow. (10) Tachycardia, unspecified: Would fit with volume depletion. Continue to follow. History of Present Illness Chief Complaint: Not feeling right Primary Care Provider: Charlie Wan MD Patient is a very pleasant 73-year-old female known to me from prior admissions. She notes she is had about a week of not feeling very good. She has been eating less, but notes she still been trying to drink well. She has had 2 episodes of diarrhea this week but it has been intermittent one episode on Monday and one episode about 3 days ago. The episode 3 days ago caused intense abdominal pain and she actually had a syncopal event where she fell off the toilet and then woke up having a degree of hip pain with her legs curled under. After that she still a little bit weaker, still been able to eat and drink just a little bit less. She notes no new medicines. No other notable problems. No fevers or chills or sweats. No ongoing diarrhea. No other infectious symptoms. She notes that friends came to check on her because they noted her curtains were down in her garbage was not out, 1 of her friends checked her blood pressure noted to be low in the range of 80/50 or so and then they sent her here to the ER. She was found to have a creatinine of 4 and we were asked to see her for further evaluation. Of note she had renal failure about 4 years ago that was appeared to be due to volume depletion and a mild rhabdomyolysis, she did require transient dialysis, but recovered quite well. Allergies Allergy/AdvReac Type Severity Reaction Status Date / Time Sulfa (Sulfonamide Allergy Severe Addominal Verified 11/09/18 17:22 Antibiotics) distention Home Medications Home Medications Medication Instructions Recorded Confirmed Type aspirin [Aspirin Low Dose] 81 mg PO DAILY 04/25/18 11/09/18 History fenofibrate nanocrystallized 48 mg PO DAILY 04/25/18 11/09/18 History gabapentin 300 mg PO TID 04/25/18 11/09/18 History labetalol 200 mg PO Q12H 04/25/18 11/09/18 History mirtazapine 7.5 mg PO HS 04/25/18 11/09/18 History acetaminophen 500 mg PO Q6H PRN 05/23/18 11/09/18 History atorvastatin 10 mg PO HS 05/23/18 11/09/18 History calcium carbonate-vitamin D3 1 tab PO BID 05/23/18 11/09/18 History [Calcium 600 with Vitamin D3] cholecalciferol (vitamin D3) 2,000 units PO DAILY 05/23/18 11/09/18 History [Vitamin D3] escitalopram oxalate 20 mg PO DAILY 05/23/18 11/09/18 History levothyroxine 88 mcg PO QAM 05/23/18 11/09/18 History lisinopril 40 mg PO DAILY 05/23/18 11/09/18 History ascorbic acid (vitamin C) [Vitamin 1 tab PO DAILY 11/09/18 11/09/18 History C] pyridoxine (vitamin B6) [Vitamin 1 tab PO DAILY 11/09/18 11/09/18 History B-6] Past Med/Surg History Medical History Hypertension (Chronic) Atrial flutter (Chronic 10/06/13) Confusion (Chronic 03/16/14) Altered mental status (Chronic) Arthritis (Chronic) Clostridium difficile colitis Recurrent Clostridium difficile diarrhea Sepsis associated hypotension (Resolved) Surgical History History of appendectomy Family History Other Inflammatory bowel disease Social History Communication Ability: Effective Hearing Ability: Normal marital status: Current Living Situation: Alone Feels Safe at Home: Yes Smoking Status: Never smoker Review of Systems Review of Systems: All systems reviewed & are unremarkable except as noted in HPI & below Physical Exam Physical Exam: gen - pleasant nad heent - nc at mmm neck supple cochlear implant site appearing intact cardio - reg no r/m/g lungs - cta b/l no rr//w good effort abd soft nd nt no masses or organomegaly ext - no c/c/e skin - chronic appearing changes, no rashes no pallor or icterus neuro - chronic TUNUNAK otherwise cn 2-12 grossly intact gross motor/sensory intact mental - good recent and remote recall normal mood and affect Results & Data Vital Signs (Past 12 Hours) Vital Signs Temp Pulse Pulse Resp BP BP Pulse Ox 11/09/18 17:00 98 H 18 108/70 98 11/09/18 15:38 97 11/09/18 15:35 36.7 C 90 20 91/69 L 97 Laboratory Results Cr 4 CT without striking findings CXR noted (1) Renal failure Renal failure chronicity: unspecified chronicity Qualified Code(s): N19 - Unspecified kidney failure (2) Syncope Syncope type: unspecified Qualified Code(s): R55 - Syncope and collapse
[2018-11-09 19:37] LABS: Creatine Kinase 561 U/L (26-192)
[2018-11-09] MEDS ORDERED: ACETAMINOPHEN 500 MG TAB ONE (19:37)
--- NOTE | 2018-11-09 20:15 | Emergency Department Note ---
Entered by Jamie Bonner acting as a scribe for Louie Romero DO History of Present Illness General Chief complaint: Syncope Time Seen by Provider: 11/09/18 15:33 Source: patient and EMS History of Present Illness Provider complaint: Weakness Onset (ago): day(s) 2 Location: head Pain Consistency: + now resolved and + other (Worsening) Relieved By: + none Exacerbated By: + none Associated symptoms: + headaches, + weakness and + other (Neck pain, shakiness, ) The patient is a 73 year old female who presents to the Emergency Room with complaints of worsening weakness over the past couple of days, per EMS. They also note that she has had a headache and shakiness. When EMS arrived, her blood pressure was low but was normal by the time she arrived at the ED. Per the patient, two days ago the patient had abdominal cramps after eating dinner and while in the bathroom she syncopized. Today she did not lose consciousness but she did get dizzy again so she called her neighbor. Currently, the patient no longer has her neck pain that she has been experiencing but she does still feel weak. She also has not been urinating as much as she normally does. 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 Since this time she states there has not been any complications. Home Medications Home Medications Medication Instructions Recorded Confirmed Type aspirin [Aspirin Low Dose] 81 mg PO DAILY 04/25/18 11/09/18 History fenofibrate nanocrystallized 48 mg PO DAILY 04/25/18 11/09/18 History gabapentin 300 mg PO TID 04/25/18 11/09/18 History labetalol 200 mg PO Q12H 04/25/18 11/09/18 History mirtazapine 7.5 mg PO HS 04/25/18 11/09/18 History acetaminophen 500 mg PO Q6H PRN 05/23/18 11/09/18 History atorvastatin 10 mg PO HS 05/23/18 11/09/18 History calcium carbonate-vitamin D3 1 tab PO BID 05/23/18 11/09/18 History [Calcium 600 with Vitamin D3] cholecalciferol (vitamin D3) 2,000 units PO DAILY 05/23/18 11/09/18 History [Vitamin D3] escitalopram oxalate 20 mg PO DAILY 05/23/18 11/09/18 History levothyroxine 88 mcg PO QAM 05/23/18 11/09/18 History lisinopril 40 mg PO DAILY 05/23/18 11/09/18 History ascorbic acid (vitamin C) [Vitamin 1 tab PO DAILY 11/09/18 11/09/18 History C] pyridoxine (vitamin B6) [Vitamin 1 tab PO DAILY 11/09/18 11/09/18 History B-6] Allergies Allergy/AdvReac Type Severity Reaction Status Date / Time Sulfa (Sulfonamide Allergy Severe Addominal Verified 11/09/18 17:22 Antibiotics) distention Past Med/Surg History Medical History Hypertension (Chronic) Atrial flutter (Chronic 10/06/13) Confusion (Chronic 10/06/13) Altered mental status (Chronic) Arthritis (Chronic) Clostridium difficile colitis Recurrent Clostridium difficile diarrhea Sepsis associated hypotension (Resolved) Surgical History History of appendectomy Family History Other Inflammatory bowel disease Social History Preferred Language: Ukrainian Communication Ability: Effective Hearing Ability: Normal 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 and A total of 10 systems reviewed and were otherwise negative Physical Exam Vital Signs Vital Signs - 24 hr 11/09/18 15:35 11/09/18 15:38 11/09/18 16:13 Temperature 36.7 C Temperature Source Oral Sepsis Recent Fever Within 48 Hours No Sepsis New/Unexplained Change in Mental Status No Sepsis Action Taken by Nursing No Action Required Pulse Rate 90 90 Pulse Rate [Apical] Respiratory Rate 20 13 Respiratory Effort / Characteristics Respiratory Depth Blood Pressure 91/69 L Blood Pressure [Left Arm] Blood Pressure [Right Arm] Blood Pressure Mean 76 Blood Pressure Mean [Left Arm] Blood Pressure Mean [Right Arm] Blood Pressure Position [Left Arm] Blood Pressure Position [Right Arm] Pulse Oximetry 97 97 Oxygen Delivery Method Room Air Room Air 11/09/18 16:54 11/09/18 17:00 11/09/18 17:30 Temperature Temperature Source Sepsis Recent Fever Within 48 Hours Sepsis New/Unexplained Change in Mental Status Sepsis Action Taken by Nursing Pulse Rate 90 90 96 H Pulse Rate [Apical] 98 H Respiratory Rate 10 L 10 L 13 Respiratory Effort / Characteristics Respiratory Depth Blood Pressure 101/56 L 108/71 Blood Pressure [Left Arm] Blood Pressure [Right Arm] 108/70 Blood Pressure Mean 71 83 Blood Pressure Mean [Left Arm] Blood Pressure Mean [Right Arm] 82 Blood Pressure Position [Left Arm] Blood Pressure Position [Right Arm] Pulse Oximetry 98 Oxygen Delivery Method Room Air 11/09/18 18:00 11/09/18 18:01 11/09/18 18:30 Temperature Temperature Source Sepsis Recent Fever Within 48 Hours Sepsis New/Unexplained Change in Mental Status Sepsis Action Taken by Nursing Pulse Rate 102 H 99 H 100 H Pulse Rate [Apical] 99 H Respiratory Rate 23 13 12 Respiratory Effort / Characteristics Respiratory Depth Blood Pressure 116/73 Blood Pressure [Left Arm] Blood Pressure [Right Arm] 116/73 Blood Pressure Mean 87 Blood Pressure Mean [Left Arm] Blood Pressure Mean [Right Arm] 87 Blood Pressure Position [Left Arm] Blood Pressure Position [Right Arm] Pulse Oximetry 99 Oxygen Delivery Method Room Air 11/09/18 19:00 11/09/18 19:30 11/09/18 22:23 Temperature 36.7 C Temperature Source Oral Sepsis Recent Fever Within 48 Hours Sepsis New/Unexplained Change in Mental Status Sepsis Action Taken by Nursing Pulse Rate 112 H 101 H Pulse Rate [Apical] 79 Respiratory Rate 21 16 14 Respiratory Effort / Characteristics Non-Labored Respiratory Depth Normal Blood Pressure Blood Pressure [Left Arm] Blood Pressure [Right Arm] 104/73 Blood Pressure Mean Blood Pressure Mean [Left Arm] Blood Pressure Mean [Right Arm] 83 Blood Pressure Position [Left Arm] Blood Pressure Position [Right Arm] Pulse Oximetry 100 Oxygen Delivery Method Room Air 11/09/18 22:45 11/10/18 08:00 Temperature 36.7 C 36.9 C Temperature Source Oral Oral Sepsis Recent Fever Within 48 Hours Sepsis New/Unexplained Change in Mental Status Sepsis Action Taken by Nursing Pulse Rate Pulse Rate [Apical] 97 H 115 H Respiratory Rate 20 17 Respiratory Effort / Characteristics Respiratory Depth Blood Pressure Blood Pressure [Left Arm] 117/86 Blood Pressure [Right Arm] 116/76 Blood Pressure Mean Blood Pressure Mean [Left Arm] 96 Blood Pressure Mean [Right Arm] 89 Blood Pressure Position [Left Arm] Lying Blood Pressure Position [Right Arm] Lying Pulse Oximetry 97 94 Oxygen Delivery Method Room Air Room Air GENERAL: Patient is awake, alert, and in no acute distress.Patient is resting comfortably and showing no signs of anxiety EYES: The conjunctivae are clear. The pupils are round and reactive. EARS, NOSE, MOUTH AND THROAT: The nose is without any evidence of any deformity. Mucous membranes are moist.Tongue is midline NECK: The neck is nontender and supple. RESPIRATORY: Normal respiratory effort is noted. There is no evidence of wheezing rhonchi or rales to auscultation. CARDIOVASCULAR: Regular rate and rhythm noted. There no murmurs rubs or gallops normal S1 normal S2 GASTROINTESTINAL: The abdomen is soft. Bowel sounds are present in all quadrants. Abdomen is nontender. MUSCULOSKELETAL/EXTREMITIES: There is no evidence of gross deformity. Full range of motion is noted in the hips and shoulders. SKIN: Cool and dry, pulses were symmetric in both feet. Pedal edema bilaterally with venous stasis changes noted. There is no obvious evidence of any rash. There are no petechiae, pallor or cyanosis noted. NEUROLOGIC: Patient is awake alert and oriented x3. Strength is symmetric. Patellar reflexes are 2+ bilaterally. Course 1536: The patient was evaluated in room B06, and a complete history and physical examination were performed. 1800: I updated the patient with all results from today. We also discussed the treatment plan. 1815: I spoke to Dr. Dyu Huertas [facility] Hospitalist about the patient's case and he is accepting her for further evaluation. Consultations Consultation #1: I spoke to Dr. Duy Huertas [facility] Hospitalist about the patient's case and he is accepting her for further evaluation. Time: 18:15 Administered Medications Acetaminophen (Tylenol) 500 mg PO Q6H PRN PRN Reason: Pain Stop: 12/10/18 01:59 Last Admin: 11/10/18 09:57 Dose: 500 mg Documented by: [id number] Aspirin (Ecotrin Ectab) 81 mg PO DAILY CARLOS Stop: 12/10/18 08:59 Last Admin: 11/10/18 09:20 Dose: 81 mg Documented by: [id number] Atorvastatin Calcium (Lipitor) 10 mg PO HS [facility] Stop: 12/09/18 20:59 Last Admin: 11/09/18 22:13 Dose: 10 mg Documented by: [id number] Escitalopram Oxalate (Lexapro) 20 mg PO DAILY [facility] Stop: 12/10/18 08:59 Last Admin: 11/10/18 09:54 Dose: 20 mg Documented by: [id number] [facility]) [facility] Stop: 12/10/18 08:59 Last Admin: 11/10/18 09:54 Dose: 200 mg Documented by: [id number] Heparin Sodium (Porcine) (Heparin Sodium (Porcine)) 5,000 units SQ Q12 CARLOS Stop: 12/09/18 20:59 Last Admin: 11/10/18 09:59 Dose: 5,000 units Documented by: [id number] Cosigned by: [id number] Admin: 11/09/18 22:05 Dose: Not Given Documented by: [id number] Labetalol HCl (Normodyne) 200 mg PO Q12H [facility] Stop: 12/09/18 20:59 Last Admin: 11/10/18 09:55 Dose: 200 mg Documented by: [id number] Admin: 11/09/18 22:12 Dose: 200 mg Documented by: [id number] Levothyroxine Sodium (Synthroid) 88 mcg PO DAILYBB [facility] Stop: 12/10/18 06:29 Last Admin: 11/10/18 05:54 Dose: 88 mcg Documented by: [id number] Mirtazapine (Remeron) 7.5 mg PO HS [facility] Stop: 12/09/18 20:59 Last Admin: 11/09/18 22:05 Dose: 7.5 mg Documented by: [id number] Multivitamins/Minerals (Caltrate Plus) 1 tab PO BID [facility] Stop: 12/09/18 20:59 Last Admin: 11/10/18 09:20 Dose: 1 tab Documented by: [id number] Admin: 11/09/18 22:05 Dose: 1 tab Documented by: [id number] Pyridoxine HCl (Vitamin B-6) 100 mg PO DAILY [facility] Stop: 12/10/18 08:59 Last Admin: 11/10/18 09:55 Dose: 100 mg Documented by: [id number] Vitamin D (Vitamin D3) 2,000 units PO DAILY CARLOS Stop: 12/10/18 08:59 Last Admin: 11/10/18 09:56 Dose: 2,000 units Documented by: [id number] Discontinued Medications Acetaminophen (Tylenol) Confirm Administered Dose 500 mg .ROUTE .STK-MED ONE Stop: 11/09/18 19:38 Last Admin: 11/09/18 19:46 Dose: 500 mg Documented by: [id number] Sodium Chloride (Nss 1000ml) 1,000 mls @ 999 mls/hr IV .Q1H1M CARLOS Stop: 11/09/18 16:45 Last Infusion: 11/09/18 17:09 Dose: 0 mls/hr Documented by: [id number] Admin: 11/09/18 16:14 Dose: 999 mls/hr Documented by: [id number] Sodium Chloride (Nss 1000ml) 1,000 mls @ 110 mls/hr IV .Q9H6M CARLOS Stop: 12/09/18 20:24 Last Admin: 11/10/18 09:18 Dose: 110 mls/hr Documented by: [id number] Infusion: 11/10/18 08:43 Dose: 110 mls/hr Documented by: [id number] Admin: 11/09/18 23:37 Dose: 110 mls/hr Documented by: [id number] Sodium Chloride (Nss 1000ml) 1,000 mls @ 999 mls/hr IV .Q1H1M CARLOS Stop: 11/09/18 21:25 Last Infusion: 11/10/18 00:15 Dose: 0 mls/hr Documented by: [id number] Admin: 11/09/18 22:04 Dose: 999 mls/hr Documented by: [id number] Medical Decision Making Differential Diagnosis Differential Diagnosis includes but is not limited to dehydration, stroke, anemia, hypoglycemia, hyponatremia, hypernatremia, urinary tract infection, pneumonia, bronchitis, sepsis, gastroenteritis, additional abdominal pathology, metabolic abnormalities and infections. Medical Records Attestation: I reviewed the patient's medical records. Home Medications Current Medication List: was personally reviewed by me Laboratory Data Attestation: I reviewed the patient's lab results. Result diagrams: 11/10/18 07:16 11/10/18 07:16 Lab Results 11/09/18 11/09/18 11/09/18 Range/Units 16:02 16:02 16:02 WBC 7.32 (4.8-10.8) K/uL RBC 3.27 L (4.2-5.4) M/uL Hgb 11.8 L (12.0-16.0) g/dL Hct 36.8 L (37-47) % MCV 112.5 H (80-100) fL MCH 36.1 H (25-34) pg MCHC 32.1 (32-36) g/dL RDW Std Deviation 59.8 H (36.4-46.3) fL RDW Coeff of [place] 14.6 H (11.5-14.5) % Plt Count 343 (130-400) K/uL MPV 9.1 (7.4-10.4) fL Immature Gran % (Auto) 0.4 % Neut % (Auto) 72.5 % Lymph % (Auto) 19.8 % [place] % (Auto) 5.7 % Eos % (Auto) 1.2 % Baso % (Auto) 0.4 % Immature Gran # (Auto) 0.03 H (0.00-0.02) K/uL Neut # (Auto) 5.30 (1.4-6.5) K/uL Lymph # (Auto) 1.45 (1.2-3.4) K/uL [place] # (Auto) 0.42 (0.11-0.59) K/uL Eos # (Auto) 0.09 (0-0.5) K/uL Baso # (Auto) 0.03 (0-0.2) K/uL Neutrophils % (Manual) % Lymphocytes % (Manual) % Monocytes % (Manual) % Eosinophils % (Manual) % Basophils % (Manual) % Neutrophils # (Manual) (1.4-6.5) K/uL Total Absolute Neuts (1.4-6.5) K/uL Lymphocytes # (Manual) (1.2-3.4) K/uL Total Abs Lymphocytes (1.2-3.4) K/uL Monocytes # (Manual) (0.11-0.59) K/uL Eosinophils # (Manual) (0-0.5) K/uL Basophils # (Manual) (0-0.2) K/uL Macrocytosis Present Spherocytes Occasional ESR (0-21) mm/hr PT 10.6 (9.0-12.0) Seconds INR 1.0 (0.9-1.1) Sodium 133 L (136-145) mmol/L Potassium 4.7 (3.5-5.1) mmol/L Chloride 106 (98-107) mmol/L Carbon Dioxide 16 L (21-32) mmol/L Anion Gap 11.0 (3-11) BUN 92 H (7-18) mg/dl Creatinine 4.17 H (0.6-1.2) mg/dl Est Cr Clr Drug Dosing 10.8 ml/min Est GFR ( Amer) 11.4 Est GFR (Non-Af Amer) 9.8 BUN/Creatinine Ratio 22.0 H (10-20) Glucose 88 (70-99) mg/dl Calcium 8.7 (8.5-10.1) mg/dl Phosphorus (2.5-4.9) mg/dl Magnesium 2.6 H (1.8-2.4) mg/dl Total Bilirubin 0.5 (0.2-1) mg/dl AST 28 (15-37) U/L ALT 34 (12-78) U/L Alkaline Phosphatase 90 (45-117) U/L Total Creatine Kinase 561 H (26-192) U/L Troponin I < 0.015 (0-0.045) ng/ml C-Reactive Protein (0-0.29) mg/dl Total Protein 7.8 (6.4-8.2) gm/dl Albumin 3.9 (3.4-5.0) gm/dl Globulin 3.9 (2.5-4.0) gm/dl Albumin/Globulin Ratio 1.0 (0.9-2) TSH 4.290 (0.300-4.500) uIu/ml Urine Color Urine Appearance (Clear) Urine pH (4.5-7.5) Ur Specific [place] (1.000-1.030) Urine Protein (Negative) Urine Glucose (UA) (Negative) Urine Ketones (Negative) Urine Blood (Negative) Urine Nitrite (Negative) Urine Bilirubin (Negative) Urine Urobilinogen (Negative) Ur Leukocyte Esterase (Negative) Urine WBC (Auto) (0-5) /hpf Urine RBC (Auto) (0-4) /hpf U Hyaline Cast (Auto) (0-5) /lpf U Epithel Cells (Auto) (0-5) /lpf Urine Bacteria (Auto) (Negative) Ur Random Creatinine mg/dl Ur Random Sodium mmol/L 11/09/18 11/09/18 11/10/18 Range/Units 16:02 16:02 02:00 WBC (4.8-10.8) K/uL RBC (4.2-5.4) M/uL Hgb (12.0-16.0) g/dL Hct (37-47) % MCV (80-100) fL MCH (25-34) pg MCHC (32-36) g/dL RDW Std Deviation (36.4-46.3) fL RDW Coeff of [place] (11.5-14.5) % Plt Count (130-400) K/uL MPV (7.4-10.4) fL Immature Gran % (Auto) % Neut % (Auto) % Lymph % (Auto) % [place] % (Auto) % Eos % (Auto) % Baso % (Auto) % Immature Gran # (Auto) (0.00-0.02) K/uL Neut # (Auto) (1.4-6.5) K/uL Lymph # (Auto) (1.2-3.4) K/uL [place] # (Auto) (0.11-0.59) K/uL Eos # (Auto) (0-0.5) K/uL Baso # (Auto) (0-0.2) K/uL Neutrophils % (Manual) % Lymphocytes % (Manual) % Monocytes % (Manual) % Eosinophils % (Manual) % Basophils % (Manual) % Neutrophils # (Manual) (1.4-6.5) K/uL Total Absolute Neuts (1.4-6.5) K/uL Lymphocytes # (Manual) (1.2-3.4) K/uL Total Abs Lymphocytes (1.2-3.4) K/uL Monocytes # (Manual) (0.11-0.59) K/uL Eosinophils # (Manual) (0-0.5) K/uL Basophils # (Manual) (0-0.2) K/uL Macrocytosis Spherocytes ESR 40 H (0-21) mm/hr PT (9.0-12.0) Seconds INR (0.9-1.1) Sodium (136-145) mmol/L Potassium (3.5-5.1) mmol/L Chloride (98-107) mmol/L Carbon Dioxide (21-32) mmol/L Anion Gap (3-11) BUN (7-18) mg/dl Creatinine (0.6-1.2) mg/dl Est Cr Clr Drug Dosing ml/min Est GFR ( Amer) Est GFR (Non-Af Amer) BUN/Creatinine Ratio (10-20) Glucose (70-99) mg/dl Calcium (8.5-10.1) mg/dl Phosphorus (2.5-4.9) mg/dl Magnesium (1.8-2.4) mg/dl Total Bilirubin (0.2-1) mg/dl AST (15-37) U/L ALT (12-78) U/L Alkaline Phosphatase (45-117) U/L Total Creatine Kinase (26-192) U/L Troponin I (0-0.045) ng/ml C-Reactive Protein 9.02 H (0-0.29) mg/dl Total Protein (6.4-8.2) gm/dl Albumin (3.4-5.0) gm/dl Globulin (2.5-4.0) gm/dl Albumin/Globulin Ratio (0.9-2) TSH (0.300-4.500) uIu/ml Urine Color Urine Appearance (Clear) Urine pH (4.5-7.5) Ur Specific [place] (1.000-1.030) Urine Protein (Negative) Urine Glucose (UA) (Negative) Urine Ketones (Negative) Urine Blood (Negative) Urine Nitrite (Negative) Urine Bilirubin (Negative) Urine Urobilinogen (Negative) Ur Leukocyte Esterase (Negative) Urine WBC (Auto) (0-5) /hpf Urine RBC (Auto) (0-4) /hpf U Hyaline Cast (Auto) (0-5) /lpf U Epithel Cells (Auto) (0-5) /lpf Urine Bacteria (Auto) (Negative) Ur Random Creatinine 73.9 mg/dl Ur Random Sodium 32 mmol/L 11/10/18 11/10/18 11/10/18 Range/Units 02:00 07:16 07:16 WBC 6.31 (4.8-10.8) K/uL RBC 2.88 L (4.2-5.4) M/uL Hgb 10.3 L (12.0-16.0) g/dL Hct 32.3 L (37-47) % MCV 112.2 H (80-100) fL MCH 35.8 H (25-34) pg MCHC 31.9 L (32-36) g/dL RDW Std Deviation 60.2 H (36.4-46.3) fL RDW Coeff of [place] 14.7 H (11.5-14.5) % Plt Count 305 (130-400) K/uL MPV 9.0 (7.4-10.4) fL Immature Gran % (Auto) % Neut % (Auto) % Lymph % (Auto) % [place] % (Auto) % Eos % (Auto) % Baso % (Auto) % Immature Gran # (Auto) (0.00-0.02) K/uL Neut # (Auto) (1.4-6.5) K/uL Lymph # (Auto) (1.2-3.4) K/uL [place] # (Auto) (0.11-0.59) K/uL Eos # (Auto) (0-0.5) K/uL Baso # (Auto) (0-0.2) K/uL Neutrophils % (Manual) 67.8 % Lymphocytes % (Manual) 22.6 % Monocytes % (Manual) 5.2 % Eosinophils % (Manual) 3.5 % Basophils % (Manual) 0.9 % Neutrophils # (Manual) 4.28 (1.4-6.5) K/uL Total Absolute Neuts 4.28 (1.4-6.5) K/uL Lymphocytes # (Manual) 1.43 (1.2-3.4) K/uL Total Abs Lymphocytes 1.43 (1.2-3.4) K/uL Monocytes # (Manual) 0.33 (0.11-0.59) K/uL Eosinophils # (Manual) 0.22 (0-0.5) K/uL Basophils # (Manual) 0.06 (0-0.2) K/uL Macrocytosis Present Spherocytes ESR (0-21) mm/hr PT (9.0-12.0) Seconds INR (0.9-1.1) Sodium 143 D (136-145) mmol/L Potassium 4.3 (3.5-5.1) mmol/L Chloride 119 H (98-107) mmol/L Carbon Dioxide 13 L (21-32) mmol/L Anion Gap 12.0 H (3-11) BUN 66 H (7-18) mg/dl Creatinine 2.03 H D (0.6-1.2) mg/dl Est Cr Clr Drug Dosing 22.2 ml/min Est GFR ( Amer) 27.1 Est GFR (Non-Af Amer) 23.4 BUN/Creatinine Ratio 32.7 H (10-20) Glucose 87 (70-99) mg/dl Calcium 8.7 (8.5-10.1) mg/dl Phosphorus (2.5-4.9) mg/dl Magnesium (1.8-2.4) mg/dl Total Bilirubin (0.2-1) mg/dl AST (15-37) U/L ALT (12-78) U/L Alkaline Phosphatase (45-117) U/L Total Creatine Kinase (26-192) U/L Troponin I (0-0.045) ng/ml C-Reactive Protein (0-0.29) mg/dl Total Protein (6.4-8.2) gm/dl Albumin (3.4-5.0) gm/dl Globulin (2.5-4.0) gm/dl Albumin/Globulin Ratio (0.9-2) TSH (0.300-4.500) uIu/ml Urine Color Yellow Urine Appearance Clear (Clear) Urine pH 5.0 (4.5-7.5) Ur Specific [place] 1.023 (1.000-1.030) Urine Protein Negative (Negative) Urine Glucose (UA) Negative (Negative) Urine Ketones Trace H (Negative) Urine Blood 1+ H (Negative) Urine Nitrite Negative (Negative) Urine Bilirubin Negative (Negative) Urine Urobilinogen Negative (Negative) Ur Leukocyte Esterase Trace H (Negative) Urine WBC (Auto) 1-5 (0-5) /hpf Urine RBC (Auto) 0-4 (0-4) /hpf U Hyaline Cast (Auto) 1-5 (0-5) /lpf U Epithel Cells (Auto) 20-30 H (0-5) /lpf Urine Bacteria (Auto) Negative (Negative) Ur Random Creatinine mg/dl Ur Random Sodium mmol/L 11/10/18 Range/Units 07:16 WBC (4.8-10.8) K/uL RBC (4.2-5.4) M/uL Hgb (12.0-16.0) g/dL Hct (37-47) % MCV (80-100) fL MCH (25-34) pg MCHC (32-36) g/dL RDW Std Deviation (36.4-46.3) fL RDW Coeff of [place] (11.5-14.5) % Plt Count (130-400) K/uL MPV (7.4-10.4) fL Immature Gran % (Auto) % Neut % (Auto) % Lymph % (Auto) % [place] % (Auto) % Eos % (Auto) % Baso % (Auto) % Immature Gran # (Auto) (0.00-0.02) K/uL Neut # (Auto) (1.4-6.5) K/uL Lymph # (Auto) (1.2-3.4) K/uL [place] # (Auto) (0.11-0.59) K/uL Eos # (Auto) (0-0.5) K/uL Baso # (Auto) (0-0.2) K/uL Neutrophils % (Manual) % Lymphocytes % (Manual) % Monocytes % (Manual) % Eosinophils % (Manual) % Basophils % (Manual) % Neutrophils # (Manual) (1.4-6.5) K/uL Total Absolute Neuts (1.4-6.5) K/uL Lymphocytes # (Manual) (1.2-3.4) K/uL Total Abs Lymphocytes (1.2-3.4) K/uL Monocytes # (Manual) (0.11-0.59) K/uL Eosinophils # (Manual) (0-0.5) K/uL Basophils # (Manual) (0-0.2) K/uL Macrocytosis Spherocytes ESR (0-21) mm/hr PT (9.0-12.0) Seconds INR (0.9-1.1) Sodium (136-145) mmol/L Potassium (3.5-5.1) mmol/L Chloride (98-107) mmol/L Carbon Dioxide (21-32) mmol/L Anion Gap (3-11) BUN (7-18) mg/dl Creatinine (0.6-1.2) mg/dl Est Cr Clr Drug Dosing ml/min Est GFR ( Amer) Est GFR (Non-Af Amer) BUN/Creatinine Ratio (10-20) Glucose (70-99) mg/dl Calcium (8.5-10.1) mg/dl Phosphorus 4.6 (2.5-4.9) mg/dl Magnesium (1.8-2.4) mg/dl Total Bilirubin (0.2-1) mg/dl AST (15-37) U/L ALT (12-78) U/L Alkaline Phosphatase (45-117) U/L Total Creatine Kinase (26-192) U/L Troponin I (0-0.045) ng/ml C-Reactive Protein (0-0.29) mg/dl Total Protein (6.4-8.2) gm/dl Albumin (3.4-5.0) gm/dl Globulin (2.5-4.0) gm/dl Albumin/Globulin Ratio (0.9-2) TSH (0.300-4.500) uIu/ml Urine Color Urine Appearance (Clear) Urine pH (4.5-7.5) Ur Specific [place] (1.000-1.030) Urine Protein (Negative) Urine Glucose (UA) (Negative) Urine Ketones (Negative) Urine Blood (Negative) Urine Nitrite (Negative) Urine Bilirubin (Negative) Urine Urobilinogen (Negative) Ur Leukocyte Esterase (Negative) Urine WBC (Auto) (0-5) /hpf Urine RBC (Auto) (0-4) /hpf U Hyaline Cast (Auto) (0-5) /lpf U Epithel Cells (Auto) (0-5) /lpf Urine Bacteria (Auto) (Negative) Ur Random Creatinine mg/dl Ur Random Sodium mmol/L Imaging Data Radiologist's Impression: Radiology results as stated below per my review and the radiologist's interpretation: XR chest 1V portable CLINICAL HISTORY: weakness COMPARISON STUDY: 05/23/2018 FINDINGS: The heart is borderline enlarged. There are bilateral lower lung zone pulmonary airspace opacities. Diagnostic considerations include pulmonary edema versus a bilateral infectious/inflammatory process. Clinical and radiographic follow-up is recommended. There are no significant pleural effusions.[ IMPRESSION: Interval development of bilateral lower lung zone pulmonary airspace opacities (pulmonary edema versus a bilateral infectious/inflammatory process). Clinical and radiographic follow-up is recommended. Electronically signed by: Daniel Prather M.D. 11/09/2018 6:[address] CT DOSE: 1277.12 mGycm HISTORY: syncope TECHNIQUE: Multiaxial CT images of the head were performed without the use of intravenous contrast. Automated exposure control was utilized for this study. A dose lowering technique was utilized adhering to the principles of ALARA. Comparison: Head CT 12/25/2016. Findings: Extensive metallic artifact from the right-sided cochlear implant. There is no definite mass, hematoma, midline shift, or acute infarct. The ventricles and sulci are within normal limits for age. Completely opacified left maxillary sinus. This remains unchanged. Impression: 1. No acute intracranial abnormality. 2. Extensive metallic artifact in the right cochlear implant. 3. No change in the opacified left maxillary sinus. Electronically signed by: Armando Arcos M.D. 11/09/2018 4:[address] SCAN OF THE ABDOMEN AND PELVIS WITHOUT CONTRAST CLINICAL HISTORY: Abdominal distention. Syncope. COMPARISON STUDY: 06-10 TECHNIQUE: CT scan of the abdomen and pelvis was performed from the lung bases to the proximal femurs. Images are reviewed in the axial, sagittal, and coronal planes. IV contrast was not administered for this examination. A dose lowering technique was utilized adhering to the principles of ALARA. CT DOSE: 904.12 mGycm FINDINGS: Lower chest: Underlying emphysema is suspected. There is no focal pulmonary consolidation. Liver: Slight peripheral right hepatic lobe anterior ductal prominence remain stable. No masses are visualized in this noncontrast study. Gallbladder: The gallbladder appears contracted and lobulated. Spleen: Normal in size and attenuation. Pancreas: Unremarkable. Adrenal glands: Unremarkable. Kidneys: No renal, ureteral, or bladder calculi are visualized. There is a 9 mm exophytic right renal lesion likely representing a hyperdense cyst Bowel: There are no transition zones indicate bowel obstruction. There is no acute diverticulitis. There are no findings to indicate acute appendicitis. Peritoneum: There is no intraperitoneal free air or abdominal ascites. Vasculature: The abdominal aorta is normal in course and caliber. Adenopathy: None. Pelvic viscera: The bladder, and pelvic viscera are unremarkable. Skeletal structures: There is an old L1 compression fracture. IMPRESSION: 1. No evidence of bowel obstruction. No evidence of free air 2. No evidence of acute appendicitis. No evidence of acute diverticulitis 3. No renal, ureteral, or bladder calculi identified. Electronically signed by: Daniel Prather M.D. 11/09/2018 4:48 PM ECG Data Attestation: I personally reviewed and interpreted this ECG as follows: Indication: syncope Rate (beats per minute): 95 Rhythm: normal sinus Findings: + nonspecific-ST abn (Lateral) and + Q waves (Acute inferiorly) Comparison ECG Date: from (05/25/18) Change: no significant change Blood Pressure Blood Pressure Findings: Normal blood pressure Blood Pressure Disposition: further management by hospitalist DRE Narrative The patient is a 73-year-old female who presented to the emergency department for an evaluation of generalized weakness. The patient does have a history of renal failure in the past. It does appear that this was partially related to dehydration. She was treated with IV fluids in the emergency department. I discussed the patient's laboratory and radiographic studies with her. Ultimately she was found to have an elevation in her creatinine greater than her baseline. I discussed her case with the on-call [facility] hospitalist group. They have agreed to evaluate the patient in the emergency department for further management and disposition. The patient was feeling much better on subsequent reevaluation. Impression & Plan Syncope, Renal failure, Acute hyponatremia Discharge Plan Visit Data *Final* Discharge Date/Time: 11/09/18 20:28 Chief Complaint: Syncope Other Complaint: Fall Knee Injury/Pain ED Provider: Louie Romero Discharge Problem: Syncope, Renal failure, Acute hyponatremia Patient Disposition: Admitted As Inpatient Discharge Instructions Interventions: ED Discharge Assessment Last Done: 11/09/18 20:28 Discharge Problem: Syncope Qualifiers: Syncope type: unspecified Qualified Code(s): R55 - Syncope and collapse Renal failure Qualifiers: Renal failure chronicity: unspecified chronicity Qualified Code(s): N19 - Unspecified kidney failure The scribe's documentation has been prepared under my direction and personally reviewed by me in its entirety. I confirm that the note above accurately reflects all work, treatment, procedures, and medical decision making performed by me.
[2018-11-09] MEDS ORDERED: ONDANSETRON INJ 2 MG/ML 2 ML VIAL IV PRN (20:25)
[2018-11-09] MEDS ORDERED: ALUMINUM/MAGNESIUM SUSP 30 ML UDC PO PRN (20:25)
[2018-11-09] MEDS ORDERED: MAGNESIUM HYDROXIDE SUSP 30 ML UDC PO PRN (20:25)
[2018-11-09] MEDS: HEPARIN SOD 5,000 UNIT/0.5 ML VIAL SQ SCH (22:05)
[2018-11-09] MEDS: MIRTAZAPINE TAB 15 MG TAB PO SCH (22:05)
[2018-11-09] MEDS: CALCIUM 600MG + VIT D 400 IU TAB PO SCH (22:05)
[2018-11-09] MEDS: LABETALOL HCL 200 MG TAB PO SCH (22:12)
[2018-11-09] MEDS: ATORVASTATIN 10 MG TAB PO SCH (22:13)
[2018-11-09] MEDS: SODIUM CHLORIDE 0.9% 1000ML 1,000 ML IV SCH (23:37)
[2018-11-10 03:14] LABS: Appearance Urine Clear (Clear); Bacteria Urine Automated Negative (Negative); Bilirubin Urine Negative (Negative); Blood Urine 1+ (Negative); Color Urine Yellow; Epithelial Cell Urine Auto 20-30 /lpf (0-5); Glucose Urine UA Negative (Negative); Ketones Urine Trace (Negative); Leukocyte Esterase Urine Trace (Negative); Nitrite Urine Negative (Negative); Protein Urine Negative (Negative); RBC Urine Automated 0-4 /hpf (0-4); Specific Gravity Urine 1.023 (1.000-1.030); Urobilinogen Urine Negative (Negative)
[2018-11-10 03:34] LABS: Creatinine Urine Random 73.9 mg/dl
[2018-11-10] MEDS: LEVOTHYROXINE SODIUM 88 MCG TABLET PO SCH (05:54)
[2018-11-10 08:06] LABS: Hematocrit (blood only) 32.3 % (37-47); Hemoglobin 10.3 g/dL (12.0-16.0); Mean Corpuscular Hgb Conc 31.9 g/dL (32-36); Mean Corpuscular Volume 112.2 fL (80-100); Platelet Count 305 K/uL (130-400); RDW Coefficient of Variation 14.7 % (11.5-14.5); RDW Standard Deviation 60.2 fL (36.4-46.3); Red Blood Count 2.88 M/uL (4.2-5.4); White Blood Count 6.31 K/uL (4.8-10.8)
[2018-11-10 08:33] LABS: ALC (manual) 1.43 K/uL (1.2-3.4); Basophils # (manual) 0.06 K/uL (0-0.2); Basophils % (manual) 0.9 %; Eosinophils # (manual) 0.22 K/uL (0-0.5); Eosinophils % (manual) 3.5 %; Lymphocytes # (manual) 1.43 K/uL (1.2-3.4); Lymphocytes % (manual) 22.6 %; Macrocytosis Present; Monocytes # (manual) 0.33 K/uL (0.11-0.59); Monocytes % (manual) 5.2 %; Neutrophils % (manual) 67.8 %
[2018-11-10 08:36] LABS: BUN Creatinine Ratio 32.7 (10-20); Calcium 8.7 mg/dl (8.5-10.1); Creatinine Clr Calc Pharmacy 22.2 ml/min; Est GFR (African American) 27.1; Est GFR (Non-African American) 23.4; Potassium 4.3 mmol/L (3.5-5.1)
[2018-11-10] MEDS: SODIUM CHLORIDE 0.9% 1000ML 1,000 ML IV SCH (09:18)
[2018-11-10] MEDS: ASPIRIN 81 MG ECTAB PO SCH (09:20)
[2018-11-10] MEDS: CALCIUM 600MG + VIT D 400 IU TAB PO SCH ×2 (09:20→20:37)
--- NOTE | 2018-11-10 09:52 | Family Medicine Progress Note ---
Date of Service November 10, 2018 Assessment & Plan (1) Renal failure: Pt is a 73yo with a PMHx significant for previous renal failure requiring dialysis who presented to the ED for hypotension and was found to have a Cr of 4.17. Admitted on November 09, 2018. Acute Renal Failure -Likely prerenal with a touch of ATN -FeNa with today's labs of 0.6% suggests prerenal -Cr improved today from 4.17 to 2.03 with IV fluids, also more support for prerenal etiology -Cr baseline of 1.51 as recently as May 2018 -Was on an LOLIS which has since been discontinued while hospitalized. -Nephrology consulted--appreciate recs -Will continue the fluids today -Will continue to monitor renal function Elevated CPK -CPK of 561, not elevated enough for dx of rhabdo. -Will continue to monitor Abnormal chest XR -Pt NOT symptomatic -No infectious symptoms, not hypoxic -Will continue to monitor HTN -Currently HYPOtensive -Hold home meds Metabolic Acidosis -Likely secondary to renal failure -Continue hydration for renal failure -Will continue to monitor Anemia -H/H dropped to 10.3/32.3 today from 11.8/36.8 -Anemia chronic and dropped today likely to a dilutional effect -Chronically renal failure a contributory cause. -Will continue to monitor. DVT Prophylaxis: Heparin SQ FEN: Dialysis Renal Dispo: Discharge pending further improvement with Cr function Supervising Physician Co-Signing Physician Notes I personally examined the patient and verified all lu points of history and exam, discussed case, and agree with decision making with Dr Payne. Feeling better. Labs noted. She is overall improving. Discussed with nephrology. Input appreciated. Vitals noted, in general she is pleasant no distress. HEENT normocephalic atraumatic mucous members moist. Breathing is unlabored no accessory muscle use good effort. Skin shows no rashes no pallor or icterus. Acute renal failureappears to have been prerenal approaching ATN may be mild ATN. She is improving with IV fluids though some most of it was prerenal. More than likely it was dehydration compounded by LOLIS inhibitor. Agree with nephrology that given that she has had significant problems with dehydration leading to [place] renal failure before, LOLIS/ARB likely should not be part of her antihypertensive regimen moving forward to afford her more "margin of error" whenever she gets a little bit dehydrated. Metabolic acidosis due to abovecontinue fluids as ordered by nephrology DVT prophylaxisheparin subcu Subjective Ms. Smith states she's feeling much better today. States she has had 2 bowel movements since being here, without blood or feeling like it is diarrhea. Review of Systems Review of Systems: All systems reviewed & are unremarkable except as noted in HPI & below Physical Exam Physical Exam: General: Alert, oriented. No acute distress. Hard of hearing, HEENT: NC/AT Chest: Nontender to palpation. CV: RRR, Normal s1, s2. Resp: Breath sounds clear bilaterally, no increased effort of breathing. Some coarseness on left base but resolves with further breathing. Abdomen: Soft, tender to palpation in LLQ. No guarding. No organomegaly appreciated. Extremities: No edema in lower extremities bilaterally. Results & Data Vital Signs (Past 12 Hours) Vital Signs Temp Pulse Resp BP BP Pulse Ox 11/10/18 08:00 36.9 C 115 H 17 117/86 94 11/09/18 22:45 36.7 C 97 H 20 116/76 97 11/09/18 22:23 36.7 C 79 14 104/73 100 Laboratory Results Laboratory Results - last 24 hr 11/09/18 11/09/18 11/09/18 16:02 16:02 16:02 WBC 7.32 RBC 3.27 L Hgb 11.8 L Hct 36.8 L MCV 112.5 H MCH 36.1 H MCHC 32.1 RDW Std Deviation 59.8 H RDW Coeff of [place] 14.6 H Plt Count 343 MPV 9.1 Immature Gran % (Auto) 0.4 Neut % (Auto) 72.5 Lymph % (Auto) 19.8 [place] % (Auto) 5.7 Eos % (Auto) 1.2 Baso % (Auto) 0.4 Immature Gran # (Auto) 0.03 H Neut # (Auto) 5.30 Lymph # (Auto) 1.45 [place] # (Auto) 0.42 Eos # (Auto) 0.09 Baso # (Auto) 0.03 Neutrophils % (Manual) Lymphocytes % (Manual) Monocytes % (Manual) Eosinophils % (Manual) Basophils % (Manual) Neutrophils # (Manual) Total Absolute Neuts Lymphocytes # (Manual) Total Abs Lymphocytes Monocytes # (Manual) Eosinophils # (Manual) Basophils # (Manual) Macrocytosis Present Spherocytes Occasional ESR PT 10.6 INR 1.0 Sodium 133 L Potassium 4.7 Chloride 106 Carbon Dioxide 16 L Anion Gap 11.0 BUN 92 H Creatinine 4.17 H Est Cr Clr Drug Dosing 10.8 Est GFR ( Amer) 11.4 Est GFR (Non-Af Amer) 9.8 BUN/Creatinine Ratio 22.0 H Glucose 88 Calcium 8.7 Magnesium 2.6 H Total Bilirubin 0.5 AST 28 ALT 34 Alkaline Phosphatase 90 Total Creatine Kinase 561 H Troponin I < 0.015 C-Reactive Protein Total Protein 7.8 Albumin 3.9 Globulin 3.9 Albumin/Globulin Ratio 1.0 TSH 4.290 Urine Color Urine Appearance Urine pH Ur Specific [place] Urine Protein Urine Glucose (UA) Urine Ketones Urine Blood Urine Nitrite Urine Bilirubin Urine Urobilinogen Ur Leukocyte Esterase Urine WBC (Auto) Urine RBC (Auto) U Hyaline Cast (Auto) U Epithel Cells (Auto) Urine Bacteria (Auto) Ur Random Creatinine Ur Random Sodium 11/09/18 11/09/18 11/10/18 16:02 16:02 02:00 WBC RBC Hgb Hct MCV MCH MCHC RDW Std Deviation RDW Coeff of [place] Plt Count MPV Immature Gran % (Auto) Neut % (Auto) Lymph % (Auto) [place] % (Auto) Eos % (Auto) Baso % (Auto) Immature Gran # (Auto) Neut # (Auto) Lymph # (Auto) [place] # (Auto) Eos # (Auto) Baso # (Auto) Neutrophils % (Manual) Lymphocytes % (Manual) Monocytes % (Manual) Eosinophils % (Manual) Basophils % (Manual) Neutrophils # (Manual) Total Absolute Neuts Lymphocytes # (Manual) Total Abs Lymphocytes Monocytes # (Manual) Eosinophils # (Manual) Basophils # (Manual) Macrocytosis Spherocytes ESR 40 H PT INR Sodium Potassium Chloride Carbon Dioxide Anion Gap BUN Creatinine Est Cr Clr Drug Dosing Est GFR ( Amer) Est GFR (Non-Af Amer) BUN/Creatinine Ratio Glucose Calcium Magnesium Total Bilirubin AST ALT Alkaline Phosphatase Total Creatine Kinase Troponin I C-Reactive Protein 9.02 H Total Protein Albumin Globulin Albumin/Globulin Ratio TSH Urine Color Urine Appearance Urine pH Ur Specific [place] Urine Protein Urine Glucose (UA) Urine Ketones Urine Blood Urine Nitrite Urine Bilirubin Urine Urobilinogen Ur Leukocyte Esterase Urine WBC (Auto) Urine RBC (Auto) U Hyaline Cast (Auto) U Epithel Cells (Auto) Urine Bacteria (Auto) Ur Random Creatinine 73.9 Ur Random Sodium 32 11/10/18 11/10/18 11/10/18 02:00 07:16 07:16 WBC 6.31 RBC 2.88 L Hgb 10.3 L Hct 32.3 L MCV 112.2 H MCH 35.8 H MCHC 31.9 L RDW Std Deviation 60.2 H RDW Coeff of [place] 14.7 H Plt Count 305 MPV 9.0 Immature Gran % (Auto) Neut % (Auto) Lymph % (Auto) [place] % (Auto) Eos % (Auto) Baso % (Auto) Immature Gran # (Auto) Neut # (Auto) Lymph # (Auto) [place] # (Auto) Eos # (Auto) Baso # (Auto) Neutrophils % (Manual) 67.8 Lymphocytes % (Manual) 22.6 Monocytes % (Manual) 5.2 Eosinophils % (Manual) 3.5 Basophils % (Manual) 0.9 Neutrophils # (Manual) 4.28 Total Absolute Neuts 4.28 Lymphocytes # (Manual) 1.43 Total Abs Lymphocytes 1.43 Monocytes # (Manual) 0.33 Eosinophils # (Manual) 0.22 Basophils # (Manual) 0.06 Macrocytosis Present Spherocytes ESR PT INR Sodium 143 D Potassium 4.3 Chloride 119 H Carbon Dioxide 13 L Anion Gap 12.0 H BUN 66 H Creatinine 2.03 H D Est Cr Clr Drug Dosing 22.2 Est GFR ( Amer) 27.1 Est GFR (Non-Af Amer) 23.4 BUN/Creatinine Ratio 32.7 H Glucose 87 Calcium 8.7 Magnesium Total Bilirubin AST ALT Alkaline Phosphatase Total Creatine Kinase Troponin I C-Reactive Protein Total Protein Albumin Globulin Albumin/Globulin Ratio TSH Urine Color Yellow Urine Appearance Clear Urine pH 5.0 Ur Specific [place] 1.023 Urine Protein Negative Urine Glucose (UA) Negative Urine Ketones Trace H Urine Blood 1+ H Urine Nitrite Negative Urine Bilirubin Negative Urine Urobilinogen Negative Ur Leukocyte Esterase Trace H Urine WBC (Auto) 1-5 Urine RBC (Auto) 0-4 U Hyaline Cast (Auto) 1-5 U Epithel Cells (Auto) 20-30 H Urine Bacteria (Auto) Negative Ur Random Creatinine Ur Random Sodium Medications Administered Home Medications aspirin [Aspirin Low Dose] 81 mg PO DAILY 04/25/18 [History Confirmed 11/09/18] fenofibrate nanocrystallized 48 mg PO DAILY 04/25/18 [History Confirmed 11/09/18] gabapentin 300 mg PO TID 04/25/18 [History Confirmed 11/09/18] labetalol 200 mg PO Q12H 04/25/18 [History Confirmed 11/09/18] mirtazapine 7.5 mg PO HS 04/25/18 [History Confirmed 11/09/18] acetaminophen 500 mg PO Q6H PRN 05/23/18 [History Confirmed 11/09/18] atorvastatin 10 mg PO HS 05/23/18 [History Confirmed 11/09/18] calcium carbonate-vitamin D3 [Calcium 600 with Vitamin D3] 1 tab PO BID 05/23/18 [History Confirmed 11/09/18] cholecalciferol (vitamin D3) [Vitamin D3] 2,000 units PO DAILY 05/23/18 [History Confirmed 11/09/18] escitalopram oxalate 20 mg PO DAILY 05/23/18 [History Confirmed 11/09/18] levothyroxine 88 mcg PO QAM 05/23/18 [History Confirmed 11/09/18] lisinopril 40 mg PO DAILY 05/23/18 [History Confirmed 11/09/18] ascorbic acid (vitamin C) [Vitamin C] 1 tab PO DAILY 11/09/18 [History Confirmed 11/09/18] pyridoxine (vitamin B6) [Vitamin B-6] 1 tab PO DAILY 11/09/18 [History Confirmed 11/09/18] Active Medications Acetaminophen (Tylenol) 500 mg PO Q6H PRN PRN Reason: Pain Stop: 12/10/18 01:59 Last Admin: 11/10/18 09:57 Dose: 500 mg Documented by: Al Hydrox/Mg Hydrox/Simethicone (Maalox) 30 ml PO Q6H PRN PRN Reason: Dyspepsia Stop: 12/09/18 20:24 Aspirin (Ecotrin Ectab) 81 mg PO DAILY [facility] Stop: 12/10/18 08:59 Last Admin: 11/10/18 09:20 Dose: 81 mg Documented by: Atorvastatin Calcium (Lipitor) 10 mg PO HS [facility] Stop: 12/09/18 20:59 Last Admin: 11/09/18 22:13 Dose: 10 mg Documented by: Escitalopram Oxalate (Lexapro) 20 mg PO DAILY [facility] Stop: 12/10/18 08:59 Last Admin: 11/10/18 09:54 Dose: 20 mg Documented by: Gabapentin (Neurontin) 200 mg PO QAM [facility]; Protocol Stop: 12/10/18 08:59 Last Admin: 11/10/18 09:54 Dose: 200 mg Documented by: Heparin Sodium (Porcine) (Heparin Sodium (Porcine)) 5,000 units SQ Q12 [facility]LOS Stop: 12/09/18 20:59 Last Admin: 11/10/18 09:59 Dose: 5,000 units Documented by: Sodium Chloride (Nss 1000ml) 1,000 mls @ 110 mls/hr IV .Q9H6M [facility] Stop: 12/09/18 20:24 Last Admin: 11/10/18 09:18 Dose: 110 mls/hr Documented by: Labetalol HCl (Normodyne) 200 mg PO Q12H [facility] Stop: 12/09/18 20:59 Last Admin: 11/10/18 09:55 Dose: 200 mg Documented by: Levothyroxine Sodium (Synthroid) 88 mcg PO DAILYBB [facility] Stop: 12/10/18 06:29 Last Admin: 11/10/18 05:54 Dose: 88 mcg Documented by: Magnesium Hydroxide (Milk Of Magnesia) 30 ml PO Q6H PRN PRN Reason: Constipation Stop: 12/09/18 20:24 Mirtazapine (Remeron) 7.5 mg PO HS [facility] Stop: 12/09/18 20:59 Last Admin: 11/09/18 22:05 Dose: 7.5 mg Documented by: Multivitamins/Minerals (Caltrate Plus) 1 tab PO BID [facility] Stop: 12/09/18 20:59 Last Admin: 11/10/18 09:20 Dose: 1 tab Documented by: Ondansetron HCl (Zofran) 4 mg IV Q6H PRN PRN Reason: Nausea Stop: 12/09/18 20:24 Pyridoxine HCl (Vitamin B-6) 100 mg PO DAILY [facility] Stop: 12/10/18 08:59 Last Admin: 11/10/18 09:55 Dose: 100 mg Documented by: Vitamin D (Vitamin D3) 2,000 units PO DAILY [facility] Stop: 12/10/18 08:59 Last Admin: 11/10/18 09:56 Dose: 2,000 units Documented by: (1) Renal failure Renal failure chronicity: unspecified chronicity Qualified Code(s): N19 - Unspecified kidney failure
[2018-11-10] MEDS: GABAPENTIN 100 MG CAP PO SCH (09:54)
[2018-11-10] MEDS: ESCITALOPRAM OXALATE 20 MG TAB PO SCH (09:54)
[2018-11-10] MEDS: LABETALOL HCL 200 MG TAB PO SCH ×2 (09:55→20:33)
[2018-11-10] MEDS: PYRIDOXINE HCL 50 MG TAB PO SCH (09:55)
[2018-11-10] MEDS: CHOLECALCIFEROL 1,000 UNITS TAB PO SCH (09:56)
[2018-11-10] MEDS: ACETAMINOPHEN 500 MG TAB PO PRN ×2 (09:57→23:27)
[2018-11-10] MEDS: HEPARIN SOD 5,000 UNIT/0.5 ML VIAL SQ SCH ×2 (09:59→20:34)
--- NOTE | 2018-11-10 12:26 | Nephrology Consultation ---
Date of Consultation November 10, 2018 Assessment & Plan (1) Acute kidney injury: -- [place] urine sediment -- Creatinine trending down w/ IV hydration -- Patient is nonoliguric -- Abdominal imaging reveals a 9 mm exophytic R renal lesion suggestive of a hemorrhagic cyst. This was previously identified on 06/10 CT study and appears to be stable or smaller in size (2) Metabolic acidosis: -- Will change IVF to 0.45 w/ 75 mEq NaHCO3 at 75 cc/hr (3) Diarrhea: -- Patient reports that this has resolved -- h/o C. Difficile colitis (4) Hypertension: -- HTN well controlled w/ Labetalol therapy -- Recommend avoiding LOLIS / ARB therapy as patient has had several hospitalizations in the past for dehydration and DAVID History of Present Illness Reason for Consultation: DAVID Attending Physician: Robert Armstrong, History of Present Illness Ms. Smith is a 73 year old white female who is seen at the request of Dr. Armstrong for evaluation of DAVID. Medical records in the EMR were reviewed today and are summarized as follows: Ms. Smith is and lives alone. She is hearing impaired and has a cochlear implant. Her medical history is also significant for HTN, hypothyroidism, B12 deficiency, C. Difficile colitis, and depression. In 2014 she presented w/ diarrheal illness complicated by dehydration and DAVID. She recovered with conservative care and antibiotic therapy. In April 2015 she was found at home poorly responsive. She was admitted w/ dehydration, rhabdomyolysis and DAVID requiring emergency dialysis. Yesterday Ms. Smith presented to the ED for evaluation of weakness. She had diarrhea, dehydration and relative hypotension. She remained on her LOLIS inhibitor therapy. She was admitted to the hospital for IV hydration and management of DAVID. Creatinine had rise from her baseline 0.7 to 4.17. Allergies Allergy/AdvReac Type Severity Reaction Status Date / Time Sulfa (Sulfonamide Allergy Severe Addominal Verified 11/09/18 17:22 Antibiotics) distention Home Medications Home Medications Medication Instructions Recorded Confirmed Type aspirin [Aspirin Low Dose] 81 mg PO DAILY 04/25/18 11/09/18 History fenofibrate nanocrystallized 48 mg PO DAILY 04/25/18 11/09/18 History gabapentin 300 mg PO TID 04/25/18 11/09/18 History labetalol 200 mg PO Q12H 04/25/18 11/09/18 History mirtazapine 7.5 mg PO HS 04/25/18 11/09/18 History acetaminophen 500 mg PO Q6H PRN 05/23/18 11/09/18 History atorvastatin 10 mg PO HS 05/23/18 11/09/18 History calcium carbonate-vitamin D3 1 tab PO BID 05/23/18 11/09/18 History [Calcium 600 with Vitamin D3] cholecalciferol (vitamin D3) 2,000 units PO DAILY 05/23/18 11/09/18 History [Vitamin D3] escitalopram oxalate 20 mg PO DAILY 05/23/18 11/09/18 History levothyroxine 88 mcg PO QAM 05/23/18 11/09/18 History lisinopril 40 mg PO DAILY 05/23/18 11/09/18 History ascorbic acid (vitamin C) [Vitamin 1 tab PO DAILY 11/09/18 11/09/18 History C] pyridoxine (vitamin B6) [Vitamin 1 tab PO DAILY 11/09/18 11/09/18 History B-6] Patient History Medical History Hypertension (Chronic) Atrial flutter (Chronic 10/06/13) Confusion (Chronic 10/06/13) Altered mental status (Chronic) Arthritis (Chronic) Clostridium difficile colitis Recurrent Clostridium difficile diarrhea Sepsis associated hypotension (Resolved) Surgical History History of appendectomy Family History Other Inflammatory bowel disease Social History Preferred Language: Kazakh Communication Ability: Effective Hearing Ability: Normal Care Analyst Required: No Beliefs That Will Affect Care: None marital status: Current Living Situation: Alone Other Information That Helps Us Care for You: No Feels Safe at Home: Yes Safety Concerns: Feels Safe At This Time Smoking Status: Never smoker Hx Alcohol Use: Yes Alcohol type: wine Hx Substance Use: No Review of Systems Constitutional: no fever Respiratory: no dyspnea Cardiovascular: no chest pain Gastrointestinal: + diarrhea/loose stools Genitourinary: no dysuria and no hematuria Physical Exam Constitutional: + frail appearing Eyes: PERRL, conjunctivae normal, anicteric sclerae Neck: trachea midline, no thyromegaly Respiratory: normal respiratory effort, lungs clear to auscultation Cardiovascular: RRR, no murmur, no edema Gastrointestinal (Abdomen): normal bowel sounds, soft, nontender, no hepatosplenomegaly Results & Data Vital Signs (Past 12 Hours) Vital Signs Temp Pulse Resp BP Pulse Ox 11/10/18 08:00 36.9 C 115 H 17 117/86 94 Laboratory Results Laboratory Tests 11/09/18 11/10/18 11/10/18 16:02 02:00 07:16 WBC 6.31 Hgb 10.3 L Hct 32.3 L Plt Count 305 Sodium Potassium Chloride Carbon Dioxide BUN Creatinine 4.17 H Glucose Urine Color Yellow Urine Appearance Clear Urine pH 5.0 Ur Specific [place] 1.023 Urine Protein Negative Urine Glucose (UA) Negative Urine Blood 1+ H Urine Nitrite Negative Urine WBC (Auto) 1-5 Urine RBC (Auto) 0-4 11/10/18 07:16 WBC Hgb Hct Plt Count Sodium 143 D Potassium 4.3 Chloride 119 H Carbon Dioxide 13 L BUN 66 H Creatinine 2.03 H D Glucose 87 Urine Color Urine Appearance Urine pH Ur Specific [place] Urine Protein Urine Glucose (UA) Urine Blood Urine Nitrite Urine WBC (Auto) Urine RBC (Auto) Diagnostic Findings Abdominal CT 11/09: No evidence of bowel obstruction. No evidence of free air 2. No evidence of acute appendicitis. No evidence of acute diverticulitis 3. No renal, ureteral, or bladder calculi identified. 4. There is a 9 mm exophytic right renal lesion likely representing a hyperdense cyst
[2018-11-10] MEDS: SODIUM BICARBONATE 8.4% 75 MEQ in SODIUM CHLORIDE 0.45 % 1,000 ML IV SCH (14:15)
[2018-11-10] MEDS: ATORVASTATIN 10 MG TAB PO SCH (20:33)
[2018-11-10] MEDS: MIRTAZAPINE TAB 15 MG TAB PO SCH (20:34)
[2018-11-11] MEDS: SODIUM BICARBONATE 8.4% 75 MEQ in SODIUM CHLORIDE 0.45 % 1,000 ML IV SCH (03:55)
[2018-11-11] MEDS: LEVOTHYROXINE SODIUM 88 MCG TABLET PO SCH (05:31)
[2018-11-11 05:58] LABS: Hematocrit (blood only) 31.5 % (37-47); Hemoglobin 10.1 g/dL (12.0-16.0); Mean Corpuscular Hgb Conc 32.1 g/dL (32-36); Mean Corpuscular Volume 110.1 fL (80-100); Mean Platelet Volume 8.8 fL (7.4-10.4); Platelet Count 310 K/uL (130-400); RDW Coefficient of Variation 14.5 % (11.5-14.5); RDW Standard Deviation 58.3 fL (36.4-46.3); Red Blood Count 2.86 M/uL (4.2-5.4); White Blood Count 5.74 K/uL (4.8-10.8)
[2018-11-11 06:41] LABS: BUN Creatinine Ratio 39.6 (10-20); Calcium 8.7 mg/dl (8.5-10.1); Creatinine Clr Calc Pharmacy 45.2 ml/min; Est GFR (African American) 63.8; Est GFR (Non-African American) 55.1; Potassium 4.2 mmol/L (3.5-5.1)
[2018-11-11] MEDS: ACETAMINOPHEN 500 MG TAB PO PRN (07:31)
[2018-11-11 08:12] VITALS: TEMP 98.2; O2SAT 93
[2018-11-11] MEDS: ESCITALOPRAM OXALATE 20 MG TAB PO SCH (08:18)
[2018-11-11] MEDS: LABETALOL HCL 200 MG TAB PO SCH (08:18)
[2018-11-11] MEDS: CHOLECALCIFEROL 1,000 UNITS TAB PO SCH (08:18)
[2018-11-11] MEDS: PYRIDOXINE HCL 50 MG TAB PO SCH (08:18)
[2018-11-11] MEDS: CALCIUM 600MG + VIT D 400 IU TAB PO SCH (08:19)
[2018-11-11] MEDS: HEPARIN SOD 5,000 UNIT/0.5 ML VIAL SQ SCH (08:19)
[2018-11-11] MEDS: ASPIRIN 81 MG ECTAB PO SCH (08:19)
[2018-11-11] MEDS: GABAPENTIN 100 MG CAP PO SCH (08:19)
[2018-11-11 08:33] LABS: Magnesium 1.9 mg/dl (1.8-2.4)
[2018-11-11] MEDS ORDERED: AMLODIPINE BESYLATE 5 MG TAB PO ONE (09:31)
--- NOTE | 2018-11-11 10:16 | Nephrology Progress Note ---
Date of Service November 11, 2018 Assessment & Plan (1) Acute kidney injury: -- [place] urine sediment -- Patient is nonoliguric. Kidney function has recovered -- Will sign off. Please call if further Nephrology assistance is needed (2) Metabolic acidosis: -- Will d/c IV (3) Diarrhea: -- Patient reports that this has resolved -- h/o C. Difficile colitis (4) Hypertension: -- Continue Labetalol therapy -- Recommend avoiding LOLIS / ARB therapy as patient has had several hospitalizations in the past for dehydration and DAVID -- Consider titrating Labetalol dose or adding low dose amlodipine. Blood pressure should improve off IV fluis Subjective Ms. Smith was seen & examined in her hospital room this morning. She currently denies fever, abdominal pain or uremic symptoms. She reports that her diarrhea is resolving Review of Systems Constitutional: no fever Respiratory: no dyspnea Cardiovascular: no chest pain Gastrointestinal: no diarrhea/loose stools Physical Exam Constitutional: + frail appearing Eyes: PERRL, conjunctivae normal, anicteric sclerae Neck: trachea midline, no thyromegaly Respiratory: normal respiratory effort, lungs clear to auscultation Cardiovascular: RRR, no murmur, no edema Gastrointestinal (Abdomen): normal bowel sounds, soft, nontender, no hepatosplenomegaly Results & Data Vital Signs (Past 12 Hours) Vital Signs Temp Pulse Resp BP BP Pulse Ox 11/11/18 08:11 36.8 C 108 H 182/118 H 93 11/10/18 23:05 37.1 C 104 H 18 177/98 H 94 Laboratory Results Laboratory Tests 11/11/18 11/11/18 05:39 05:39 WBC 5.74 Hgb 10.1 L Hct 31.5 L Plt Count 310 Sodium 143 Potassium 4.2 Chloride 118 H Carbon Dioxide 20 L BUN 40 H Creatinine 1.00 D Calcium 8.7
[2018-11-11 10:42] VITALS: BP 118/73; PULSE 93
--- NOTE | 2018-11-11 11:02 | Discharge Summary ---
Date of Service November 11, 2018 Admission HPI Per Admitting Provider Patient is a very pleasant 73-year-old female known to me from prior admissions. She notes she is had about a week of not feeling very good. She has been eating less, but notes she still been trying to drink well. She has had 2 episodes of diarrhea this week but it has been intermittent one episode on Monday and one episode about 3 days ago. The episode 3 days ago caused intense abdominal pain and she actually had a syncopal event where she fell off the toilet and then woke up having a degree of hip pain with her legs curled under. After that she still a little bit weaker, still been able to eat and drink just a little bit less. She notes no new medicines. No other notable problems. No fevers or chills or sweats. No ongoing diarrhea. No other infectious symptoms. She notes that friends came to check on her because they noted her curtains were down in her garbage was not out, 1 of her friends checked her blood pressure noted to be low in the range of 80/50 or so and then they sent her here to the ER. She was found to have a creatinine of 4 and we were asked to see her for further evaluation. Of note she had renal failure about 4 years ago that was appeared to be due to volume depletion and a mild rhabdomyolysis, she did require transient dialysis, but recovered quite well. Admission Exam Per Admitting Provider gen - pleasant nad heent - nc at mmm neck supple cochlear implant site appearing intact cardio - reg no r/m/g lungs - cta b/l no rr//w good effort abd soft nd nt no masses or organomegaly ext - no c/c/e skin - chronic appearing changes, no rashes no pallor or icterus neuro - chronic [place] otherwise cn 2-12 grossly intact gross motor/sensory intact mental - good recent and remote recall normal mood and affect Principal Diagnosis Acute Kidney Injury Discharge Exam General: Alert, oriented. No acute distress. Hard of hearing. HEENT: NC/AT Chest: Nontender to palpation. CV: RRR, Normal s1, s2. Resp: Breath sounds clear bilaterally, no increased effort of breathing. Abdomen: Soft, nontender to palpation. No guarding. No organomegaly appreciated. Extremities: No edema in lower extremities bilaterally. Discharge Data Allergies Allergy/AdvReac Type Severity Reaction Status Date / Time Sulfa (Sulfonamide Allergy Severe Addominal Verified 11/09/18 17:22 Antibiotics) distention Consultations 11/09/18 18:17 ED Decision to Admit Stat 11/09/18 20:25 Consult Nephrology Routine Ordered Studies 11/09/18 15:37 CT head/brain wo con Stat 11/09/18 15:47 CT abd pelvis wo con Stat Hospital Course (1) Renal failure: Pt is a 73yo with a PMHx significant for previous renal failure requiring dialysis who presented to the ED for hypotension and was found to have a Cr of 4.17. Admitted on November 09, 2018 and discharged on November 11, 2018. Acute Renal Failure -Resolved on discharge with a Cr of 1.00. -Treated with IV Fluids only which strongly corroborates a prerenal cause. -Likely prerenal with a touch of ATN -FeNa of 0.6% calculated however. -Cr baseline of 1.51 as recently as May 2018. On discharge, cr of 1.00. -Was on an LOLIS which has since been discontinued while hospitalized. -Upon discharge, advised pt to discontinue use. Replaced with amlodipine 2.5mg on discharge. -Nephrology consulted--appreciate recs (d/c LOLIS, IV bicarb for metabolic acidosis, starting low dose amlodipine or titrating up labetalol). -Close f/u with PCP strongly recommended on discharge for BMP monitoring and med changes. Elevated CPK -CPK of 561 -not elevated enough for dx of rhabdomyolysis. Abnormal chest XR -suggestive of pneumonia- bibasilar opacities noted. -Pt NOT symptomatic however. -No infectious symptoms, not hypoxic -Close f/u with PCP strongly recommended. HTN -Managed with home labetalol and amlodipine 2.5mg added day of discharge. -LOLIS/home lisinopril was DISCONTINUED on day of discharge because of effect on kidney. -Close f/u with PCP strongly recommended. Metabolic Acidosis -Likely secondary to renal failure -Was treated with IV fluids with sodium bicarbonate. -Resolved on discharge. Anemia -H/H stable -Anemia chronic -Close f/u with PCP recommended. Total Time Total Time Spent Total Time Spent (In Minutes): <30 Discharge Plan Discharge Items Patient Disposition: Home - Self-Care Reason For Visit: [facility] Discharge Diagnosis: Acute Renal Failure Discharge Goals: Decrease discomfort, Improve disease control and Improve nutritional status Activity: Per 'Additional Instructions' section Non-emergency contact: Primary Care Provider Call non-emergency contact if: your symptoms worsen Follow-up/Referrals: Charlie Cody MD [Primary Care Provider] - Diet: Dialysis Renal Addtl Provider Instructions: You were admitted because your kidneys were seriously injured and were in danger of failing. Hypertension Retrospectively, it looks like you were severely dehydrated and that was one of the main contributory causes. In addition you were also using a blood pressure medication called an LOLIS inhibitor that works on the kidneys and was also not helping the situation. -We advise that you STOP taking that LOLIS inhibitor at home called Lisinopril for blood pressure control since it affects the kidneys. -We have started you on another blood pressure medication that does NOT affect the kidneys called amlodipine. You seem to be tolerating that well in addition to your other blood pressure medication labetalol. -We are discharging you with a prescription for this medication, please take it as directed. Please also follow up with your primary care provider Dr. Villatoro so she can continue to monitor your progress on this new medication (amlodipine) and monitor to see if you develop any sideeffects. Acute Renal Failure -We strongly encourage you to remain hydrated by drinking at LEAST 5 of those 12oz water bottles that you like to drink. If you can drink 8 of those bottles in a day that would definitely keep you hydrated and prevent injury to your kidney. -We treated you with IV fluids and that seemed to have fixed your kidney injury so it suggests that dehydration was the cause. Therefore, it is very important to remain hydrated so that your kidneys do not become injured again. Prescriptions: New amlodipine 2.5 mg tablet 2.5 mg PO DAILY Qty: 30 RF: 0 Continued labetalol 200 mg Tablet 200 mg PO Q12H RF: 0 aspirin [Aspirin Low Dose] 81 mg Tablet,Delayed Release (Dr/Ec) 81 mg PO DAILY RF: 0 gabapentin 300 mg Capsule 300 mg PO TID RF: 0 mirtazapine 7.5 mg Tablet 7.5 mg PO HS RF: 0 fenofibrate nanocrystallized 48 mg Tablet 48 mg PO DAILY RF: 0 atorvastatin 10 mg tablet 10 mg PO HS RF: 0 levothyroxine 88 mcg tablet 88 mcg PO QAM RF: 0 escitalopram oxalate 20 mg tablet 20 mg PO DAILY RF: 0 acetaminophen 500 mg Tablet 500 mg PO Q6H PRN (Reason: Pain) RF: 0 cholecalciferol (vitamin D3) [Vitamin D3] 2,000 unit Capsule 2,000 units PO DAILY RF: 0 calcium carbonate-vitamin D3 [Calcium 600 with Vitamin D3] 600 mg(1,500mg) - 500 unit Capsule 1 tab PO BID RF: 0 ascorbic acid (vitamin C) [Vitamin C] 500 mg Tablet 1 tab PO DAILY RF: 0 pyridoxine (vitamin B6) [Vitamin B-6] 100 mg Tablet 1 tab PO DAILY RF: 0 Discontinued lisinopril 40 mg tablet 40 mg PO DAILY RF: 0 Stand-Alone Forms: [facility]/Other Patient Handouts: ED Dehydration Discharge Orders: Discharge Order (Routine); Ordered 11/11/18 Ordered By: Kristyn Payne Admission Data Admit Date/Time: 11/09/18 19:13 Attending Provider: Robert Armstrong Admit Provider: Robert Armstrong Primary Care Provider: Charlie Cody V. Other Providers: Renard Gordillo Kevin C. Service: Medical Other Interventions: Discharge Summary Assessment (RN) Last Done: 11/11/18 13:20 DC Date/Time DO NOT enter until pt leaves facility: 11/11/18 14:49 Supervising Physician Co-Signing Physician Notes I personally examined the patient and verified all lu points of history and exam, discussed case, and agree with decision making with Dr Payne. Feeling much better. Eating and drinking okay. Blood pressures have been a bit up. Discussed watchful waiting and blood pressure measurements with PCP follow- up versus initiating a more renal neutral blood pressure medicine. She and I both favor the latter approach. Amlodipine initiated. Vitals noted, in general she is awake and alert pleasant no distress. HEENT normal cephalic atraumatic mucous members are moist. Breathing is unlabored no accessory muscles. Skin shows no rashes no pallor or icterus. Acute renal failurenow improved. With hindsight this is almost certainly a prerenal state accentuated by her LOLIS inhibitor. Given that she did not have a very striking story of abhorrent p.o. intake, and given that she has had now multiple episodes of dehydration causing renal failure severe enough to land her in the hospital (the last time actually on dialysis) she seems to be very susceptible to renal effects of dehydration. Agree with nephrology that we should stop LOLIS inhibitors (and not use ARB), and will initiate blood pressure management with amlodipine on top of her labetalol given that her numbers are running fairly high. Continue to follow blood pressure in the ambulatory setting, follow-up with PCP this week. Risks and benefits of amlodipine discussed. She expresses understanding. Hypertensionas above.
== END 2018-11-11 14:49 | disposition home or self-care (01) | DRG 683 ==
LOC: ED 15:25 → 4W 19:13